=== PATIENT | male | born 1980 | race Caucasian/White ===

== ENCOUNTER 2018-09-30 14:24 | Inpatient (IN) ==
[2018-09-30 15:25] LABS: Basophils # (auto) 0.01 K/uL (0-0.2); Basophils % (auto) 0.1 %; Eosinophils # (auto) 0.03 K/uL (0-0.5); Eosinophils % (auto) 0.4 %; Hemoglobin 14.4 g/dL (14.0-18.0); Immature Granulocytes # (auto) 0.01 K/uL (0.00-0.02); Immature Granulocytes % (auto) 0.1 %; Lymphocytes # (auto) 1.51 K/uL (1.2-3.4); Lymphocytes % (auto) 20.3 %; Mean Corpuscular Hgb Conc 34.3 g/dL (32-36); Mean Corpuscular Volume 83.5 fL (80-100); Mean Platelet Volume 10.6 fL (7.4-10.4); Monocytes # (auto) 0.69 K/uL (0.11-0.59); Monocytes % (auto) 9.3 %; Neutrophils % (auto) 69.8 %; Platelet Count 205 K/uL (130-400); RDW Standard Deviation 42.6 fL (36.4-46.3); Red Blood Count 5.03 M/uL (4.7-6.1); White Blood Count 7.45 K/uL (4.8-10.8)
[2018-09-30] MEDS ORDERED: LORazepam 1 MG TAB SL STA (15:27)
[2018-09-30 15:43] LABS: Albumin Level 4.3 gm/dl (3.4-5.0); BUN Creatinine Ratio 16.8 (10-20); Calcium 8.9 mg/dl (8.5-10.1); Creatinine Clr Calc Pharmacy 159.4 ml/min; Est GFR (African American) 126.6; Est GFR (Non-African American) 109.2; Potassium 3.8 mmol/L (3.5-5.1)
[2018-09-30 15:46] LABS: Acetaminophen < 2 ug/ml (10-30); Salicylate < 1.7 mg/dl (2.8-20)
[2018-09-30 15:53] LABS: Albumin Globulin Ratio 1.2 (0.9-2); Bilirubin,Total 0.9 mg/dl (0.2-1); Globulin 3.6 gm/dl (2.5-4.0); Total Protein 7.9 gm/dl (6.4-8.2)
[2018-09-30 16:02] LABS: Appearance Urine Clear (Clear); Bilirubin Urine Negative (Negative); Blood Urine Negative (Negative); Color Urine Yellow; Glucose Urine UA Negative (Negative); Ketones Urine 1+ (Negative); Leukocyte Esterase Urine Negative (Negative); Nitrite Urine Negative (Negative); Protein Urine Negative (Negative); Specific Gravity Urine 1.019 (1.000-1.030); Urobilinogen Urine Negative (Negative)
[2018-09-30 16:31] LABS: Amphetamines+Metham, Urine Neg (Neg); Barbiturates, Urine Neg (Neg); Benzodiazepine, Urine Neg (Neg); Cocaine, Urine Neg (Neg); MDMA (Ecstacy), Urine Neg (Neg); Methadone, Urine Neg (Neg); Opiate, Urine Neg (Neg); Phencyclidine, Urine Neg (Neg)
--- NOTE | 2018-09-30 16:33 | Emergency Department Note ---
Entered by Leanne Odom acting as a scribe for Wenceslao West M.D. History of Present Illness General Chief complaint: Mental Health Evaluation Stated complaint: SUICIDAL THOUGHTS Source: patient Mode of arrival: ambulatory Limitations: no limitations History of Present Illness Onset (ago): day(s) 4 Location: head (psych) Severity: similar to prior episodes Pain Consistency: + other (worsening) Quality: + other (psych) Associated symptoms: + loss of appetite and + other (The patient complains of sleeping problems. The patient denies auditory hallucinations.) The patient is a 38 year old male with a history of hyperlipidemia, bipolar disorder, and alcohol abuse who presents to the ED with complaints of a worsening mental health issue that onset 4 days ago. Per case management, the patient was referred by his mental health provider from [facility]. He states that he has medication management and a therapist. The patient states that he thinks about hanging himself of shooting himself. He notes that he has had these thoughts in the past but they have not been emergent. The patient complains of sleeping problems and loss of appetite. The patient denies auditory h allucinations. He states that he is sober. He notes that he lives with his family. Home Medications Home Medications Medication Instructions Recorded Confirmed Type hydroxyzine pamoate [Vistaril] 50 - 100 mg PO HS PRN 09/30/18 09/30/18 History hydroxyzine pamoate [Vistaril] 50 - 100 mg PO Q6H PRN 09/30/18 09/30/18 History lamotrigine [Lamictal] 200 mg PO HS 09/30/18 09/30/18 History rosuvastatin [Crestor] 10 mg PO DAILY 09/30/18 09/30/18 History venlafaxine [Effexor XR] 75 mg PO DAILY 09/30/18 09/30/18 History ziprasidone HCl [Geodon] 60 mg PO BID 09/30/18 09/30/18 History Allergies Allergy/AdvReac Type Severity Reaction Status Date / Time Penicillins AdvReac Rash Verified 09/30/18 15:04 Past Med/Surg History Medical History HLD (hyperlipidemia) Alcohol abuse Bipolar disorder (Acute) Suicidal ideation (Acute) No pertinent family history Surgical History No pertinent past surgical history Family History Other No pertinent family history Social History Preferred Language: Lithuanian Communication Ability: Effective Visual Impairment: No Limitations Hearing Ability: Normal Current Living Situation: Family Feels Safe at Home: Yes Smoking Status: Never smoker Hx Alcohol Use: No (prior alcohol abuse) Review of Systems See HPI for pertinent positives & negatives. and A total of 10 systems reviewed and were otherwise negative Physical Exam Vital Signs Vital Signs - 24 hr 09/30/18 14:27 09/30/18 16:09 09/30/18 16:56 Temperature 36.9 C Temperature Source Oral Sepsis Recent Fever Within 48 Hours No Sepsis Action Taken by Nursing No Action Required Pulse Rate 103 H Pulse Rate [Right Finger] 91 H 93 H Pulse Rhythm [Right Finger] Regular Pulse Strength [Right Finger] Normal Respiratory Rate 20 18 18 Respiratory Effort / Characteristics Non-Labored Respiratory Depth Normal Respiratory Pattern Regular Blood Pressure 118/116 H Blood Pressure [Right Arm] 154/89 H 146/97 H Blood Pressure Mean 116 Blood Pressure Mean [Right Arm] 110 113 Blood Pressure Position Sitting Blood Pressure Position [Right Arm] Sitting Sitting Pulse Oximetry 95 98 96 Oxygen Delivery Method Room Air GENERAL: Awake, alert, well-appearing, in no distress HENT: Normocephalic, atraumatic. EYES: Normal conjunctiva. Sclera non-icteric. RESPIRATORY: Clear to auscultation. No wheezes. Normal respiratory effort. CARDIAC: Normal rate. Normal rhythm. Extremities warm and well perfused. GI: Soft, non-distended. No tenderness to palpation. No rebound or guarding. RECTAL: Deferred. MUSCULOSKELETAL: Atraumatic. Chest examination reveals no tenderness. NEURO: Normal sensorium. No sensory or motor deficits noted. No facial droop. PSYCH: Indorses SI, denies HI or hallucinations. Flat affect. SKIN: Warm and dry. No rash or jaundice noted. Course 1445: Past medical records reviewed. The patient was evaluated in room A7. A complete history and physical examination was performed. 172: The patient has been accepted to [address] [place] [address]. Administered Medications Discontinued Medications Lorazepam (Ativan) 2 mg SL NOW STA Stop: 09/30/18 15:28 Last Admin: 09/30/18 15:43 Dose: 2 mg Documented by: [id number] Medical Decision Making Differential Diagnosis Differential diagnoses Mood disorder, infection, hypoglycemia, electrolyte abnormalities, cardiac sources, intracerebral event, toxicologic, neurologic, as well as others etiologies were considered. Medical Records Attestation: I reviewed the patient's medical records. Home Medications Current Medication List: was personally reviewed by me Laboratory Data Attestation: I reviewed the patient's lab results. Result diagrams: 09/30/18 15:09 09/30/18 15:09 Lab Results 09/30/18 09/30/18 09/30/18 Range/Units 15:09 15:09 15:09 WBC 7.45 (4.8-10.8) K/uL RBC 5.03 (4.7-6.1) M/uL Hgb 14.4 (14.0-18.0) g/dL Hct 42.0 (42-52) % MCV 83.5 (80-100) fL MCH 28.6 (25-34) pg MCHC 34.3 (32-36) g/dL RDW Std Deviation 42.6 (36.4-46.3) fL RDW Coeff of Marely 14.0 (11.5-14.5) % Plt Count 205 (130-400) K/uL MPV 10.6 H (7.4-10.4) fL Immature Gran % (Auto) 0.1 % Neut % (Auto) 69.8 % Lymph % (Auto) 20.3 % Drew % (Auto) 9.3 % Eos % (Auto) 0.4 % Baso % (Auto) 0.1 % Immature Gran # (Auto) 0.01 (0.00-0.02) K/uL Neut # (Auto) 5.20 (1.4-6.5) K/uL Lymph # (Auto) 1.51 (1.2-3.4) K/uL Drew # (Auto) 0.69 H (0.11-0.59) K/uL Eos # (Auto) 0.03 (0-0.5) K/uL Baso # (Auto) 0.01 (0-0.2) K/uL Sodium 139 (136-145) mmol/L Potassium 3.8 (3.5-5.1) mmol/L Chloride 107 (98-107) mmol/L Carbon Dioxide 28 (21-32) mmol/L Anion Gap 4.0 (3-11) BUN 15 (7-18) mg/dl Creatinine 0.89 (0.6-1.4) mg/dl Est Cr Clr Drug Dosing 159.4 ml/min Est GFR ( Amer) 126.6 Est GFR (Non-Af Amer) 109.2 BUN/Creatinine Ratio 16.8 (10-20) Glucose 92 (70-99) mg/dl Calcium 8.9 (8.5-10.1) mg/dl Total Bilirubin 0.9 (0.2-1) mg/dl AST 23 (15-37) U/L ALT 46 (12-78) U/L Alkaline Phosphatase 106 (45-117) U/L Total Protein 7.9 (6.4-8.2) gm/dl Albumin 4.3 (3.4-5.0) gm/dl Globulin 3.6 (2.5-4.0) gm/dl Albumin/Globulin Ratio 1.2 (0.9-2) TSH 1.550 (0.300-4.500) uIu/ml Urine Color Urine Appearance (Clear) Urine pH (4.5-7.5) Ur Specific Billings (1.000-1.030) Urine Protein (Negative) Urine Glucose (UA) (Negative) Urine Ketones (Negative) Urine Blood (Negative) Urine Nitrite (Negative) Urine Bilirubin (Negative) Urine Urobilinogen (Negative) Ur Leukocyte Esterase (Negative) Salicylates < 1.7 L (2.8-20) mg/dl Urine Opiates Screen (Neg) Ur Methadone, Qual (Neg) Acetaminophen < 2 L (10-30) ug/ml Urine Barbiturates (Neg) Ur Phencyclidine (PCP) (Neg) U Amphetamin/Meth Scrn (Neg) MDMA (Ecstasy) Screen (Neg) U Benzodiazepines Scrn (Neg) Ur Cocaine Metabolite (Neg) U Marijuana (THC) Screen (Neg) Ethyl Alcohol mg/dL (0-3) mg/dl 09/30/18 09/30/18 09/30/18 Range/Units 15:09 15:45 15:45 WBC (4.8-10.8) K/uL RBC (4.7-6.1) M/uL Hgb (14.0-18.0) g/dL Hct (42-52) % MCV (80-100) fL MCH (25-34) pg MCHC (32-36) g/dL RDW Std Deviation (36.4-46.3) fL RDW Coeff of Marely (11.5-14.5) % Plt Count (130-400) K/uL MPV (7.4-10.4) fL Immature Gran % (Auto) % Neut % (Auto) % Lymph % (Auto) % Drew % (Auto) % Eos % (Auto) % Baso % (Auto) % Immature Gran # (Auto) (0.00-0.02) K/uL Neut # (Auto) (1.4-6.5) K/uL Lymph # (Auto) (1.2-3.4) K/uL Drew # (Auto) (0.11-0.59) K/uL Eos # (Auto) (0-0.5) K/uL Baso # (Auto) (0-0.2) K/uL Sodium (136-145) mmol/L Potassium (3.5-5.1) mmol/L Chloride (98-107) mmol/L Carbon Dioxide (21-32) mmol/L Anion Gap (3-11) BUN (7-18) mg/dl Creatinine (0.6-1.4) mg/dl Est Cr Clr Drug Dosing ml/min Est GFR ( Amer) Est GFR (Non-Af Amer) BUN/Creatinine Ratio (10-20) Glucose (70-99) mg/dl Calcium (8.5-10.1) mg/dl Total Bilirubin (0.2-1) mg/dl AST (15-37) U/L ALT (12-78) U/L Alkaline Phosphatase (45-117) U/L Total Protein (6.4-8.2) gm/dl Albumin (3.4-5.0) gm/dl Globulin (2.5-4.0) gm/dl Albumin/Globulin Ratio (0.9-2) TSH (0.300-4.500) uIu/ml Urine Color Yellow Urine Appearance Clear (Clear) Urine pH 6.0 (4.5-7.5) Ur Specific Billings 1.019 (1.000-1.030) Urine Protein Negative (Negative) Urine Glucose (UA) Negative (Negative) Urine Ketones 1+ H (Negative) Urine Blood Negative (Negative) Urine Nitrite Negative (Negative) Urine Bilirubin Negative (Negative) Urine Urobilinogen Negative (Negative) Ur Leukocyte Esterase Negative (Negative) Salicylates (2.8-20) mg/dl Urine Opiates Screen Neg (Neg) Ur Methadone, Qual Neg (Neg) Acetaminophen (10-30) ug/ml Urine Barbiturates Neg (Neg) Ur Phencyclidine (PCP) Neg (Neg) U Amphetamin/Meth Scrn Neg (Neg) MDMA (Ecstasy) Screen Neg (Neg) U Benzodiazepines Scrn Neg (Neg) Ur Cocaine Metabolite Neg (Neg) U Marijuana (THC) Screen Neg (Neg) Ethyl Alcohol mg/dL < 3.0 (0-3) mg/dl Blood Pressure Blood Pressure Findings: Elevated blood pressure Blood Pressure Disposition: elevated BP felt to be situational MDM Narrative Patient is a 38-year-old gentleman history of bipolar currently on medication presenting today with 4 days of worsening suicidal ideation. Thinks that he wants to shoot himself or hang himself. Denies attempts. Denies other hallucinations or thoughts of harming others. Denies inpatient psych history. Has been working outpatient provider and given worsening they referred him here today. States compliance with home medication. History of alcohol abuse but none recently & denies other drug use. Medical clearance completed without acute findings. Given his history of bipolar disease along with the worsening suicidal thoughts with plan believe inpatient treatment would be beneficial. Patient wishes for voluntary inpatient treatment. [facility] assisted with evaluation and referrals. Patient has some worsening anxiety and was scoring very high on the suicide assessment. Given some sublingual Ativan to help with symptoms of anxiety. Patient was evaluated by the [facility] personnel and will be admitted there for further care and treatment. Impression & Plan Suicidal ideation, Bipolar disorder Discharge Plan Visit Data Chief Complaint: Mental Health Evaluation Stated Complaint: SUICIDAL THOUGHTS ED Provider: Wenceslao West Discharge Problem: Suicidal ideation, Bipolar disorder Patient Disposition: Transfer Behavioral Health Fac Condition: Fair Forms Stand Alone Forms: My [facility] Prescriptions Prescriptions: No Action venlafaxine [Effexor XR] 75 mg Capsule,Extended Release 24hr 75 mg PO DAILY RF: 0 rosuvastatin [Crestor] 10 mg Tablet 10 mg PO DAILY RF: 0 lamotrigine [Lamictal] 200 mg Tablet 200 mg PO HS RF: 0 hydroxyzine pamoate [Vistaril] 50 mg Capsule 50 - 100 mg PO HS PRN (Reason: Sleep) RF: 0 hydroxyzine pamoate [Vistaril] 50 mg Capsule 50 - 100 mg PO Q6H PRN (Reason: Anxiety) RF: 0 ziprasidone HCl [Geodon] 60 mg Capsule 60 mg PO BID RF: 0 Referrals Referrals: PCP,NO [Primary Care Provider] - Discharge Problem: Bipolar disorder Qualifiers: Active/Remission status: currently active Current bipolar episode type: depressed Current episode severity: unspecified Qualified Code(s): F31.30 - Bipolar disorder, current episode depressed, mild or moderate severity, unspecified The scribe's documentation has been prepared under my direction and personally reviewed by me in its entirety. I confirm that the note above accurately reflects all work, treatment, procedures, and medical decision making performed by me.
[2018-09-30] MEDS ORDERED: BISMUTH SUBSALICYLATE PER ML OMNICELL CHARGE PO PRN (17:06)
[2018-09-30] MEDS ORDERED: ALUMINUM/MAGNESIUM SUSP 30 ML UDC PO PRN (17:06)
[2018-09-30] MEDS ORDERED: MAGNESIUM HYDROXIDE SUSP 30 ML UDC PO PRN (17:06)
[2018-09-30] MEDS ORDERED: SODIUM CHLORIDE 0.65% NA SOLN 45 ML (OCEAN) PRN (17:06)
[2018-09-30] MEDS: ZIPRASIDONE HCL 20 MG CAP PO SCH (19:58)
[2018-09-30] MEDS ORDERED: lamoTRIgine 100 MG TAB PO SCH (21:00)
[2018-09-30] MEDS: lamoTRIgine 100 MG TAB PO SCH (21:05)
[2018-10-01] MEDS: ZIPRASIDONE HCL 20 MG CAP PO SCH (09:18)
[2018-10-01] MEDS: ROSUVASTATIN CALCIUM 10 MG TAB PO SCH (09:18)
[2018-10-01] MEDS: VENLAFAXINE HCL XR 75 MG CAPXR PO SCH (09:18)
[2018-10-01] MEDS: QUETIAPINE FUMARATE 25 MG TABLET PO PRN ×2 (11:56→17:31)
--- NOTE | 2018-10-01 15:21 | History & Physical ---
Date of Service October 01, 2018 Impression / Recommendations Impression 38-year-old male admitted voluntarily for inpatient psychiatric treatment due to increased restlessness/agitation and suicidal ideation with plan to end his life by shooting himself or hanging. Patient was brought to the ED by his father after reporting his worsening symptoms to his outpatient psychiatric provider. Patient reports primary concerns at this time are prominent thoughts of suicide, and racing thoughts causing restlessness and agitation. Patient does not describe himself as depressed, rather he is in a more elevated state with regards to a diagnosed bipolar presentation. Reviewed previous medication history with the patient, who reports a desire to return to quetiapine as he had found it previously helpful to manage his racing scattered thoughts. Patient did receive a 60 mg dose of ziprasidone this morning, we will plan to discontinue ziprasidone in order 100 mg of quetiapine for this evening. We will plan to have 50 mg of quetiapine every morning and 100 mg at bedtime available to the patient. Patient benefited from a as needed dose of quetiapine, and therefore will have 25 mg as needed doses available. Patient was encouraged to attempt sleep with current bedtime medications; however, we will have as needed trazodone 50 mg available if necessary for insomnia here on the unit. Patient is agreeable to continuing lamotrigine at current dose of 200 mg at bedtime. He is also agreeable to continuing venlafaxine at 75 mg every morning. Did discuss with patient potential to further titrate venlafaxine, though shared concern for increased restlessness or agitation if this is indeed a hypomanic/manic presentation for him. Patient was offered a trial of metformin in combination with quetiapine, due to current elevated BMI and previously reported weight gain with the medication. Risks and benefits were discussed; however, patient declines trial at this time stating he will consider if the medication on an outpatient basis. Patient will be encouraged to participate in group and recreational programming while he is admitted to the unit. We will encourage him to consider including outpatient supports in a family meeting to discuss discharge and safety planning when appropriate. At this time, patient continues to endorse suicidal ideation with inability to contract for safety outside of the inpatient setting. He is requesting medication adjustments which may be completed more effectively on the inpatient unit. At this time he is at high risk of harm to himself if discharged prematurely, therefore inpatient psychiatric treatment is medically necessary. Dr. Bon Jay was directly involved in review and discussion of the patient's case and participated in medical decision making regarding treatment recommendations. (1) Suicidal ideation: 10/01 - Admitted to a locked inpatient behavioral health unit, on q15 minute safety checks - Encourage medication initiation/adjustments as indicated - Encourage participation in group and recreational therapies - Gather collateral information from outpatient providers - Suggest family meeting to involve outpatient supports in safety planning - Arrange appropriate aftercare (2) Mood disorder: 10/01 - Current diagnosis of bipolar I disorder, though patient's perception of symptoms does not appear to be consistent - Attempt to clarify criteria with psychiatric prescriber - Pt requesting retrial of quetiapine. Will discontinue ziprasidone (received 60mg total today), initiate 100mg of quetiapine this evening - Schedule 50mg quetiapine qAM and 100mg qHS - Could consider ongoing titration of venlafaxine as tolerated - with close observation for activation/increased restlessness - Continue lamotrigine 200mg qHS - Will add trazodone 50mg prn for sleep - pt encouraged to trial quetiapine first (3) Generalized anxiety disorder: 10/01 - Continue venlafaxine 75mg daily - prn quetiapine 25mg available for acute anxiety, as patient feels hydroxyzine is ineffective (4) HLD (hyperlipidemia): 10/01 - Outpatient fasting blood work reviewed (07/06/2018) - Total cholesterol elevated at 255; triglycerides elevated at 200; LDL elevated at 172. - Fasting glucose was WNL at 86. - Will repeat fasting blood work to have updated 3 month values; especially with the consideration for additional medication changes Hyperlipidemia type: unspecified Qualified Code(s): E78.5 - Hyperlipidemia, unspecified (5) Obesity: 10/01 - BMI - 37.3; was offered trial of metformin as part of medication regimen to offset weight gain likely with re-trial of quetiapine - Pt deferred offer at this time, stating he will consider when he returns to outpatient setting Obesity type: unspecified obesity type Obesity classification: adult class 2 (BMI 35 - 39.9) Body mass index: BMI 37.0-37.9 Inventory Assets Strengths: willingness for treatment, support of family, established outpatient providers Needs: resolution of SI, effective coping strategies Risk Factors Assessment Male: Yes : Yes Do You Have Access To A Gun?: Yes (states was secured by father; will need to confirm) Health Problems: Yes Mental Health Diagnoses: Yes Substance Use Disorders: No (Hx of alcohol abuse, last drink over 1 year ago) Previous Attempt: Yes (interrupted attempt, was set-up to hang himself in his garage) Previous Attempt; Didn't Tell Anyone: Yes Family History of Suicide: No Previous Psychiatric Hospitalization: No Hopelessness: Yes Smoker: No Protective Factors Assessment Congregational Beliefs: Yes : No Responsible for Young Children: No 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 Pt has a reported diagnosis of bipolar I disorder and generalized anxiety disorder, currently established with outpatient psychiatric providers. Pt was admitted on 09/30/18 17:06 on a 201 voluntary commitment for increased agitation/restlessness and suicidal ideation with plan to either shoot or hang himself. Information is gathered from ED notes, outpatient psychiatric documentation, and the patient himself - the combination of which is considered to be reliable. Chief Complaint "I've just been having suicidal thoughts here recently. I thought I was gonna act on them, it was really overwhelming." History of Present Illness Lázaro Guido is a 38-year-old male admitted voluntarily for inpatient psychiatric treatment upon referral from his outpatient psychiatric prescriber. Patient was brought to the ED by his father after he had shared thoughts of suicidal ideation and reported difficulty coping with racing thoughts and agitation. Patient had reported suicidal ideation for the past week with a plan to either shoot himself or hang himself. Patient admits to this provider that he has been sleeping with his gun next to him and had acquired a rope which she has been keeping in his car. Patient states "It is really overwhelming. It used to be that it would take a lot of work for me to consider suicide, now it seems like it is taking a lot of work to prevent it." Patient does admit that 10 years ago he had been in the process of attempting to end his life by hanging, but states "I do not know, I must have gotten scared, I just got off the chair and walked away." Patient reports a current diagnosis of bipolar disorder and is established with outpatient therapy and a psychiatric prescriber. Patient states that he has been receiving psychiatric treatment since the age of 21, when his suicidal thoughts began. Patient has been started on antidepressant medication, which she states was effective to improve his mood. Patient admits to a struggle with alcohol abuse, beginning in 2009. He states this was "the beginning of my divorce". At the time the patient was also in nursing school, and was experiencing increased stress from this program. Patient did receive treatment through an intensive outpatient program and his attendance in AA meetings and counseling. He reports sporadic psychiatric treatment since that time. Patient states he has been established in routine care for the last year, as he has been noting periods of increased restlessness and agitation. Patient reports a period of time in which he did not require sleep for 3 days, was excessively irritable, and had relapsed on his alcohol use after 8 years of sobriety. The patient states that his irritability and agitation lasted for about 4-5 days. Patient states that he is experienced 2 of these episodes in the springtime for the past 2 years. He also believes that stress tends to trigger these events as well. Patient admits to difficulty sleeping recently; however, has been feeling fatigued during the day and would not describe himself as overly productive. Patient reports other symptoms of difficulty falling asleep, difficulty staying asleep, reduced appetite with possible 4 pound weight loss, decreased energy, difficulty concentrating, hopelessness, and persistent suicidal thoughts for the past week. Patient does report a history of anxiety, which tends to be h eightened by financial concerns. Patient states he has not experienced panic attacks before the last few days, stating he has recently noticed tightness in his stomach and chest, difficulty breathing, feeling a need to move around, diaphoresis, and racing/scattered thoughts. Patient states the symptoms have lasted a maximum of 10 minutes in the time that they have occurred. Patient has experienced recent medication changes to assist with his increased agitation and restlessness; however, does not feel that they have been effective in managing his scattered thoughts and mood. Pt denies HI, SIB, A/V hallucinations, paranoia, OCD, PTSD, eating disorder, and other specific psychiatric symptoms. His personal report of his manic/hypomanic symptoms are not clearly consistent with a bipolar presentation. Past Psychiatric History Previous Psych History: Patient initially began psychiatric treatment in his 20s for reports of suicidal ideation and depression. He was initially treated by Dr. Zurita at [facility]. Patient states the initiation of antidepressant medications was beneficial in improving mood, Current Psychiatric Diagnosis: Bipolar Disorder I; Generalized anxiety disorder Outpatient Services: Psychiatric prescriber - MARANDA Redd - [facility] Therapist - Indira Smith Previous Psych Admissions: Denies Do You Have Access To A Gun?: Yes (states was secured by father; will need to confirm) History of Previous Suicide Attempt: No Describe Attempts in the Past: No previous attempts Past Medication Trials: Per patient and outpatient documentation: 1. Trazodone 2. Seroquel 3. Effexor 4. Pristiq 5. Lamictal 6. Geodon 7. Hydroxyzine 8. Latuda 9. Abilify (per patient reports) Past Head Trauma/Neuro History History of Concussion/Seizure: Yes LOC with head trauma at age 11; several concussions from college boxing Allergies Allergy/AdvReac Type Severity Reaction Status Date / Time Penicillins AdvReac Rash Verified 09/30/18 15:04 Home Medications Home Medications Medication Instructions Recorded Confirmed Type hydroxyzine HCl See Rx Instructions .ROUTE .COMPLEX 09/30/18 09/30/18 History lamotrigine [Lamictal] 200 mg PO HS 09/30/18 09/30/18 History rosuvastatin [Crestor] 10 mg PO DAILY 09/30/18 09/30/18 History venlafaxine See Rx Instructions .ROUTE .COMPLEX 09/30/18 09/30/18 History ziprasidone HCl [Geodon] 60 mg PO BID 09/30/18 09/30/18 History Family History Family History of: Depression (both maternal and paternal sides) Alcohol History Hx of Alcohol Use Over the Past 12 Months: No (sober for 8 years with the exception of 5 beers about a year ago) AUDIT Total Score: 0 Pt reports previous history of significant alcohol abuse beginning in 2009. Patient states he had achieved 8 years of sobriety, then relapsed on his alcohol use. Patient's last alcoholic beverage was in July 2017. Patient admits to previous treatment in an intensive outpatient program; however, denies previous admissions for inpatient drug or alcohol rehabilitation. Smoking Use Have You Smoked or Used Tobacco Products in the Last 30 Days: No Smoking Status: Never smoker Substance History Hx of Prescription Med Misuse Over the Past 12 Months: No Hx of Over the Counter Med Misuse Over the Past 12 Months: No Hx of Inhalent Misuse Over the Past 12 Months: No Hx of Organic Substance Use Over the Past 12 Months: No Hx of Illegal Substances/Street Drug Use Over Past 12 Months: No Problems as a Result of Past Substance Use: None Identified Personal History Living Arrangements: Home (With parents) Highest Grade Completed: College (Completed education for a nursing degree, 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[employer]) Marital Status: ( following 6 years of marriage) Number Of Children: None Beliefs That Will Affect Care: None Current Legal Problems: No Hx Legal Problems: No Hx Traumatic Life Events: No Patient History Medical History HLD (hyperlipidemia) Alcohol abuse Bipolar disorder (Acute) Suicidal ideation (Acute) No pertinent family history Surgical History No pertinent past surgical history Family History Other No pertinent family history Social History Preferred Language: Greek Communication Ability: Effective Visual Impairment: No Limitations Hearing Ability: Normal It Senior Analyst Required: No Beliefs That Will Affect Care: None Current Living Situation: Family Feels Safe at Home: Yes Smoking Status: Never smoker Hx Alcohol Use: No (prior alcohol abuse) Review of Systems Review of Systems: Constitutional: denied Cardiovascular: denied Respiratory: denied Gastrointestinal: denied Neurological: reports decreased concentration Psychiatric: denies symptoms other than stated above Total of at least 10 systems reviewed, pertinent positives as above and in HPI. Physical Exam Psychiatric: Orientation: alert, oriented x 3 and cooperative Apperance: appropriately dressed and appropriately groomed Obese-appearing male with neatly trimmed facial hair. Wearing t-shirt and scrub pants. Appearing anxious, but in no acute distress. Level of hygiene and hydration appear adequate. Eye Contact: good eye contact Motor Behavior: steady gait and station and no abnormal motor movements Speech: normal rate/rhythm/volume of speech (monotone) Affect: + flat affect Mood: + anxious mood; no depressed mood ("not really low, more restless") Thought Process: goal directed thought process, linear/logical thought process and clear/coherent thought process Thought Content: reality based without delusions Suicidal Thoughts: denies suicidal intent (had been sleeping with his gun and driving around with a rope in his car); + reports suicidal thoughts and + reports suicidal plan (reports plan to shoot or hang himself) Homicidal Thoughts: denies homicidal thoughts Hallucinations: no auditory hallucinations and no visual hallucinations Cognition: recent memory grossly intact, remote memory grossly intact, attention grossly intact and language grossly intact Estimated Intelligence: consistent with education level Insight: + impaired insight Judgement: + impaired judgement Vital Signs (Past 24 Hours): Last Vital Signs Temp 36.6 C 10/01/18 06:20 Pulse 101 H 10/01/18 06:22 Resp 18 10/01/18 06:20 BP 137/83 10/01/18 06:22 Pulse Ox 96 09/30/18 16:56 Exam Statement: A physical exam was performed in the ER prior to admission to the unit by Dr. Wenceslao West MD. I accept that physical as correct/medical clearance for the inpatient physical exam. Results & Data Laboratory Results Laboratory Results - last 24 hr 09/30/18 09/30/18 09/30/18 15:09 15:09 15:09 WBC 7.45 RBC 5.03 Hgb 14.4 Hct 42.0 MCV 83.5 MCH 28.6 MCHC 34.3 RDW Std Deviation 42.6 RDW Coeff of Marely 14.0 Plt Count 205 MPV 10.6 H Immature Gran % (Auto) 0.1 Neut % (Auto) 69.8 Lymph % (Auto) 20.3 [place] % (Auto) 9.3 Eos % (Auto) 0.4 Baso % (Auto) 0.1 Immature Gran # (Auto) 0.01 Neut # (Auto) 5.20 Lymph # (Auto) 1.51 [place] # (Auto) 0.69 H Eos # (Auto) 0.03 Baso # (Auto) 0.01 Sodium 139 Potassium 3.8 Chloride 107 Carbon Dioxide 28 Anion Gap 4.0 BUN 15 Creatinine 0.89 Est Cr Clr Drug Dosing 159.4 Est GFR ( Amer) 126.6 Est GFR (Non-Af Amer) 109.2 BUN/Creatinine Ratio 16.8 Glucose 92 Calcium 8.9 Total Bilirubin 0.9 AST 23 ALT 46 Alkaline Phosphatase 106 Total Protein 7.9 Albumin 4.3 Globulin 3.6 Albumin/Globulin Ratio 1.2 TSH 1.550 Urine Color Urine Appearance Urine pH Ur Specific [place] Urine Protein Urine Glucose (UA) Urine Ketones Urine Blood Urine Nitrite Urine Bilirubin Urine Urobilinogen Ur Leukocyte Esterase Salicylates < 1.7 L Urine Opiates Screen Ur Methadone, Qual Acetaminophen < 2 L Urine Barbiturates Ur Phencyclidine (PCP) U Amphetamin/Meth Scrn MDMA (Ecstasy) Screen U Benzodiazepines Scrn Ur Cocaine Metabolite U Marijuana (THC) Screen Ethyl Alcohol mg/dL 09/30/18 09/30/18 09/30/18 15:09 15:45 15:45 WBC RBC Hgb Hct MCV MCH MCHC RDW Std Deviation RDW Coeff of Marely Plt Count MPV Immature Gran % (Auto) Neut % (Auto) Lymph % (Auto) [place] % (Auto) Eos % (Auto) Baso % (Auto) Immature Gran # (Auto) Neut # (Auto) Lymph # (Auto) [place] # (Auto) Eos # (Auto) Baso # (Auto) Sodium Potassium Chloride Carbon Dioxide Anion Gap BUN Creatinine Est Cr Clr Drug Dosing Est GFR ( Amer) Est GFR (Non-Af Amer) BUN/Creatinine Ratio Glucose Calcium Total Bilirubin AST ALT Alkaline Phosphatase Total Protein Albumin Globulin Albumin/Globulin Ratio TSH Urine Color Yellow Urine Appearance Clear Urine pH 6.0 Ur Specific [place] 1.019 Urine Protein Negative Urine Glucose (UA) Negative Urine Ketones 1+ H Urine Blood Negative Urine Nitrite Negative Urine Bilirubin Negative Urine Urobilinogen Negative Ur Leukocyte Esterase Negative Salicylates Urine Opiates Screen Neg Ur Methadone, Qual Neg Acetaminophen Urine Barbiturates Neg Ur Phencyclidine (PCP) Neg U Amphetamin/Meth Scrn Neg MDMA (Ecstasy) Screen Neg U Benzodiazepines Scrn Neg Ur Cocaine Metabolite Neg U Marijuana (THC) Screen Neg Ethyl Alcohol mg/dL < 3.0 Current Inpatient Medications Current Inpatient Medications: Current Inpatient Medications Acetaminophen (Tylenol) 650 mg PO Q4H PRN PRN Reason: Headache or Minor Fever Stop: 10/30/18 17:05 Al Hydrox/Mg Hydrox/Simethicone (Maalox) 30 ml PO Q4H PRN PRN Reason: GI Upset Stop: 10/30/18 17:05 Bismuth Subsalicylate (Kaopectate) 15 ml PO PRN PRN PRN Reason: Loose Stool Stop: 10/30/18 17:05 Hydroxyzine HCl (Vistaril) 25 mg PO Q4H PRN PRN Reason: Anxiety Stop: 10/30/18 17:05 Hydroxyzine HCl (Vistaril) 50 mg PO HSZ PRN PRN Reason: Insomnia Stop: 10/30/18 17:05 Last Admin: 09/30/18 21:55 Dose: 50 mg Documented by: Lamotrigine (Lamictal) 200 mg PO HS JAMIE Stop: 10/30/18 21:59 Last Admin: 09/30/18 21:05 Dose: 200 mg Documented by: Magnesium Hydroxide (Milk Of Magnesia) 30 ml PO DAILY PRN PRN Reason: Heartburn Stop: 10/30/18 17:05 Rosuvastatin Calcium (Crestor) 10 mg PO QAM [facility] Stop: 10/31/18 08:59 Last Admin: 10/01/18 09:18 Dose: 10 mg Documented by: Sodium Chloride (Rich Nasal) 1 - 2 sprays NA PRN PRN PRN Reason: Nasal Dryness/Congestion Stop: 10/30/18 17:05 Venlafaxine HCl (Effexor Extended Release) 75 mg PO QAM [facility] Stop: 10/31/18 08:59 Last Admin: 10/01/18 09:18 Dose: 75 mg Documented by: Ziprasidone (Geodon) 60 mg PO BIDM [facility] Stop: 10/30/18 17:59 Last Admin: 10/01/18 09:18 Dose: 60 mg Documented by: CPT Code CPT Code Initial Hospital Care: [id number]
[2018-10-01] MEDS: lamoTRIgine 100 MG TAB PO SCH (21:49)
[2018-10-01] MEDS: TRAZODONE HCL 50 MG TAB PO PRN (21:51)
[2018-10-01] MEDS ORDERED: QUETIAPINE FUMARATE 100 MG TABLET PO SCH (22:00)
[2018-10-02 07:12] LABS: Glucose Fasting 93 mg/dl (70-99)
[2018-10-02 07:19] LABS: Chol HDL Ratio 3; Cholesterol 129 mg/dl (0-200); HDL Cholesterol 42 mg/dl; LDL Cholesterol Calculated 67 mg/dl; Triglycerides 102 mg/dl (0-150); VLDL Cholesterol 20 mg/dl
[2018-10-02] MEDS: VENLAFAXINE HCL XR 75 MG CAPXR PO SCH (08:17)
[2018-10-02] MEDS: ROSUVASTATIN CALCIUM 10 MG TAB PO SCH (08:17)
[2018-10-02] MEDS: QUETIAPINE FUMARATE 25 MG TABLET PO SCH (08:17)
[2018-10-02] MEDS: QUETIAPINE FUMARATE 25 MG TABLET PO PRN ×3 (11:17→19:31)
--- NOTE | 2018-10-02 12:00 | Psychiatric Progress Note ---
Date of Service October 02, 2018 Impression / Recommendations Impression 38-year-old male admitted voluntarily for inpatient psychiatric treatment due to increased restlessness/agitation and suicidal ideation with plan to end his life by shooting himself or hanging. Patient was brought to the ED by his father after reporting his worsening symptoms to his outpatient psychiatric provider. Patient reports primary concerns at this time are prominent thoughts of suicide, and racing thoughts causing restlessness and agitation. Patient does not describe himself as depressed, rather he is in a more elevated state with regards to a diagnosed bipolar presentation. At admission the provider reviewed previous medication history with the patient, who reported a desire to return to quetiapine as he had found it previously helpful to manage his racing scattered thoughts. Started at admission on 50 mg of quetiapine every morning and 100 mg at bedtime available to the patient. Patient benefited from a as needed dose of quetiapine, and therefore will have 25 mg as needed doses available. Patient was encouraged to attempt sleep with current bedtime medications; however, we will have as needed trazodone 50 mg available if necessary for insomnia here on the unit. Patient is agreed to continuing lamotrigine at current dose of 200 mg at bedtime. He agreed to continuing venlafaxine at 75 mg every morning. He declined a trial of metformin in combination with quetiapine, due to current elevated BMI and previously reported weight gain with the medication. Patient contniues to be encouraged to participate in group and recreational programming while he is admitted to the unit. We will continue to encourage him to consider including outpatient supports in a family meeting scheduled for 10/02/18 to discuss discharge and safety planning when appropriate. At this time, patient continues to endorse suicidal ideation with inability to contract for safety outside of the inpatient setting. He is requesting medication adjustments which may be completed more effectively on the inpatient unit. At this time he is at high risk of harm to himself if discharged prematurely, therefore inpatient psychiatric treatment is medically necessary. (1) Suicidal ideation: 10/01 and 10/02 - Admitted to a locked inpatient behavioral health unit, on q15 minute safety checks - Encourage medication initiation/adjustments as indicated - Encourage participation in group and recreational therapies - Gather collateral information from outpatient providers - Suggest family meeting to involve outpatient supports in safety planning - Arrange appropriate aftercare (2) Mood disorder: 10/01 and 10/02 - Current diagnosis of bipolar I disorder, though patient's perception of symptoms does not appear to be consistent - Attempt to clarify criteria with psychiatric prescriber - Pt requesting retrial of quetiapine. Will discontinue ziprasidone (received 60mg total today), initiate 100mg of quetiapine this evening - Schedule 50mg quetiapine qAM and 100mg qHS - Could consider ongoing titration of venlafaxine as tolerated - with close observation for activation/increased restlessness - Continue lamotrigine 200mg qHS - Will add trazodone 50mg prn for sleep - pt encouraged to trial quetiapine first (3) Generalized anxiety disorder: 10/01 and 10/02 - Continue venlafaxine 75mg daily - prn quetiapine 25mg available for acute anxiety, as patient feels hydroxyzine is ineffective (4) HLD (hyperlipidemia): 10/01 - Outpatient fasting blood work reviewed (07/06/2018) - Total cholesterol elevated at 255; triglycerides elevated at 200; LDL elevated at 172. - Fasting glucose was WNL at 86. - Will repeat fasting blood work to have updated 3 month values; especially with the consideration for additional medication changes 10/02 - metabolic labs all WNL today (5) Obesity: 10/01 and 10/02 - BMI - 37.3; was offered trial of metformin as part of medication regimen to offset weight gain likely with re-trial of quetiapine - Pt deferred offer at this time, stating he will consider when he returns to outpatient setting Inventory Assets Strengths: willingness for treatment, support of family, established outpatient providers Needs: resolution of SI, effective coping strategies Risk Factors Assessment Male: Yes : Yes Do You Have Access To A Gun?: Yes (states was secured by father; will need to confirm) Health Problems: Yes Mental Health Diagnoses: Yes Substance Use Disorders: No (Hx of alcohol abuse, last drink over 1 year ago) Previous Attempt: Yes (interrupted attempt, was set-up to hang himself in his garage) Previous Attempt; Didn't Tell Anyone: Yes Family History of Suicide: No Previous Psychiatric Hospitalization: No Hopelessness: Yes Smoker: No Protective Factors Assessment Anglican Beliefs: Yes : No Responsible for Young Children: No 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 Review of Systems Sleep Information Total Hours of Sleep: 6.25 Sleep Comments: received scheduled hs seroquel and prn doses of desyrel and vist aril to get to sleep Meal Information Percent Meal Consumed - Breakfast: 0 Percent Meal Consumed - Dinner: 100 Subjective Subjective Patient was seen & assessed and interval progress reviewed with Treatment Team The staff notes the patient continues to appear anxious and depressed but is taking his medications and engaged in programming on the unit. He was anxious yesterday and did well s/p 25mg seroquel x1 [facility]. He is worried about missing work, he feels less anxious than yesterday "down from a 9 to a 7 today, and then after this mornings medications down to a 6" He states he is sleeping well and not "too sleepy" on seroquel 50mg/Am and 100mg/hs with prn 25mg. He has modest dry mouth today but o/w denies SE. He reports he was thinking about suicidal all the time prior to admission and now it is down from a 10/10 to a 4/10 but still thoughts on his mind but denies active intention or plan on the unit. He is active in dsicussing his medications and doses and asking provider's perspective on his venlafaxine dose as mentioned by yesterday's provider, and askinga bout lithium which he had discussed with his outpatient provider. He shared that he has great confidence in seroquel but he was tired. He had not been on it with lamictal in the past. Encouraged him to consider keeping medications at these doses for today and evaluating for progress and se tomorrow, with consideration for seroquel to 200mg/hs, and lamictal 200mg ongoing, and then redecide about effexor. Physical Exam Psychiatric Orientation: alert, oriented x 3 and cooperative Apperance: appropriately dressed and appropriately groomed Eye Contact: good eye contact Motor Behavior: steady gait and station and no abnormal motor movements Speech: normal rate/rhythm/volume of speech (monotone but spontaneous) Affect: + flat affect Mood: + anxious mood; no depressed mood ("down, but anxiety is more my concern right now") Thought Process: goal directed thought process, linear/logical thought process and clear/coherent thought process Thought Content: reality based without delusions Suicidal Thoughts: denies suicidal intent (had been sleeping with his gun and driving around with a rope in his car); + reports suicidal thoughts (since admission has passive SI, denies intention or plan on the unit) and + reports suicidal plan (reports plan to shoot or hang himself prior to inpatient) Homicidal Thoughts: denies homicidal thoughts Hallucinations: no auditory hallucinations and no visual hallucinations Cognition: recent memory grossly intact, remote memory grossly intact, attention grossly intact and language grossly intact Estimated Intelligence: consistent with education level Insight: + impaired insight Judgement: + impaired judgement Vital Signs (Past 24 Hours) Last Vital Signs Temp 36.6 C 10/02/18 06:36 Pulse 105 H 10/02/18 06:37 Resp 16 10/02/18 06:36 BP 116/78 10/02/18 06:37 Pulse Ox 96 09/30/18 16:56 Results & Data Laboratory Results Laboratory Results - last 24 hr 10/02/18 06:27 Fasting Glucose 93 Triglycerides 102 Cholesterol 129 LDL Cholesterol, Calc 67 VLDL Cholesterol, Calc 20 HDL Cholesterol 42 Cholesterol/HDL Ratio 3 Current Inpatient Medications Current Inpatient Medications: Current Inpatient Medications Acetaminophen (Tylenol) 650 mg PO Q4H PRN PRN Reason: Headache or Minor Fever Stop: 10/30/18 17:05 Al Hydrox/Mg Hydrox/Simethicone (Maalox) 30 ml PO Q4H PRN PRN Reason: GI Upset Stop: 10/30/18 17:05 Bismuth Subsalicylate (Kaopectate) 15 ml PO PRN PRN PRN Reason: Loose Stool Stop: 10/30/18 17:05 Hydroxyzine HCl (Vistaril) 25 mg PO Q4H PRN PRN Reason: Anxiety Stop: 10/30/18 17:05 Hydroxyzine HCl (Vistaril) 50 mg PO HSZ PRN PRN Reason: Insomnia Stop: 10/30/18 17:05 Last Admin: 10/01/18 23:07 Dose: 50 mg Documented by: Lamotrigine (Lamictal) 200 mg PO HS JAMIE Stop: 10/30/18 21:59 Last Admin: 10/01/18 21:49 Dose: 200 mg Documented by: Magnesium Hydroxide (Milk Of Magnesia) 30 ml PO DAILY PRN PRN Reason: Heartburn Stop: 10/30/18 17:05 Quetiapine Fumarate (Seroquel) 25 mg PO Q4H PRN PRN Reason: agitation/anxiety Stop: 10/31/18 11:29 Last Admin: 10/02/18 11:17 Dose: 25 mg Documented by: Quetiapine Fumarate (Seroquel) 100 mg PO HS JAMIE Stop: 10/31/18 21:59 Last Admin: 10/01/18 21:50 Dose: 100 mg Documented by: Quetiapine Fumarate (Seroquel) 50 mg PO QAM [facility] Stop: 11/01/18 08:59 Last Admin: 10/02/18 08:17 Dose: 50 mg Documented by: Rosuvastatin Calcium (Crestor) 10 mg PO QAM [facility] Stop: 10/31/18 08:59 Last Admin: 10/02/18 08:17 Dose: 10 mg Documented by: Sodium Chloride ([place] Nasal) 1 - 2 sprays NA PRN PRN PRN Reason: Nasal Dryness/Congestion Stop: 10/30/18 17:05 Trazodone HCl (Desyrel) 50 mg PO HS PRN PRN Reason: insomnia Stop: 10/31/18 16:41 Last Admin: 10/01/18 21:51 Dose: 50 mg Documented by: Venlafaxine HCl (Effexor Extended Release) 75 mg PO QAM [facility] Stop: 10/31/18 08:59 Last Admin: 10/02/18 08:17 Dose: 75 mg Documented by: Post Discharge Appointments Psychiatrist Name of Psychiatrist: [facility] [place] - MARANDA Shannon Psychiatrist's Psychiatric Appointment Comment: [address] [place] [address] Therapist Name of Therapist: [facility]ri [facility] - Indira Therapist's Therapy Appointment Comment: [address] [place] [id number] Purchasing Buyer Name of Purchasing Buyer: None Contact Information Discharge Discharge Address: [address] [place] [id number] CPT Code CPT Code 31192 (1) HLD (hyperlipidemia) Hyperlipidemia type: unspecified Qualified Code(s): E78.5 - Hyperlipidemia, unspecified (2) Obesity Obesity type: unspecified obesity type Obesity classification: adult class 2 (BMI 35 - 39.9) Body mass index: BMI 37.0-37.9
[2018-10-02] MEDS: lamoTRIgine 100 MG TAB PO SCH (21:01)
[2018-10-02] MEDS ORDERED: QUETIAPINE FUMARATE 200 MG TAB PO SCH (22:00)
[2018-10-02] MEDS: TRAZODONE HCL 50 MG TAB PO PRN (22:32)
[2018-10-03] MEDS: ROSUVASTATIN CALCIUM 10 MG TAB PO SCH (07:45)
[2018-10-03] MEDS: VENLAFAXINE HCL XR 75 MG CAPXR PO SCH (07:45)
[2018-10-03] MEDS: QUETIAPINE FUMARATE 25 MG TABLET PO SCH (07:46)
[2018-10-03] MEDS: QUETIAPINE FUMARATE 25 MG TABLET PO PRN ×3 (09:14→17:16)
--- NOTE | 2018-10-03 09:43 | Psychiatric Progress Note ---
Date of Service October 03, 2018 Impression / Recommendations Impression 38-year-old male admitted voluntarily for inpatient psychiatric treatment due to increased restlessness/agitation and suicidal ideation with plan to end his life by shooting himself or hanging. Patient was brought to the ED by his father after reporting his worsening symptoms to his outpatient psychiatric provider. Patient reports primary concerns at this time are prominent thoughts of suicide, and racing thoughts causing restlessness and agitation. Patient does not describe himself as depressed, rather he is in a more elevated state with regards to a diagnosed bipolar presentation. At admission the provider reviewed previous medication history with the patient, who reported a desire to return to quetiapine as he had found it previously helpful to manage his racing scattered thoughts. Started at admission on 50 mg of quetiapine every morning and 100 mg at bedtime available to the patient. Patient benefited from a as needed dose of quetiapine, and therefore will have 25 mg as needed doses available. Patient was encouraged to attempt sleep with current bedtime medications; however, we will have as needed trazodone 50 mg available if necessary for insomnia here on the unit. Patient is agreed to continuing lamotrigine at current dose of 200 mg at bedtime. He agreed to continuing venlafaxine at 75 mg every morning. He declined a trial of metformin in combination with quetiapine, due to current elevated BMI and previously reported weight gain with the medication. Patient continues to be encouraged to participate in group and recreational programming while he is admitted to the unit. We will continue to encourage him to consider including outpatient supports. At this time, patient continues to endorse suicidal ideation with inability to contract for safety outside of the inpatient setting. He is requesting medication adjustments which may be completed more effectively on the inpatient unit. At this time he is at high risk of harm to himself if discharged prematurely, therefore inpatient psychiatric treatment is medically necessary. (1) Suicidal ideation: 10/01 and on - Admitted to a locked inpatient behavioral health unit, on q15 minute safety checks - Encourage medication initiation/adjustments as indicated - Encourage participation in group and recreational therapies - Gather collateral information from outpatient providers - Suggest family meeting to involve outpatient supports in safety planning - Arrange appropriate aftercare - 10/02 family meeting parents to secure gun, and pills -10/03 SW to call family to secure the rope (2) Mood disorder: 10/01 and 10/02 - Current diagnosis of bipolar I disorder, though patient's perception of symptoms does not appear to be consistent - Attempt to clarify criteria with psychiatric prescriber - Pt requesting retrial of quetiapine. Will discontinue ziprasidone (received 60mg total today), initiate 100mg of quetiapine this evening - Schedule 50mg quetiapine qAM and 100mg qHS - Could consider ongoing titration of venlafaxine as tolerated - with close observation for activation/increased restlessness - Continue lamotrigine 200mg qHS - Will add trazodone 50mg prn for sleep - pt encouraged to trial quetiapine first 10/03 - ongoing high anxiety alongside low mood, increase seroquel to 300mg/hs, and as noted for anxiety addition of buspar titrating 7.5mg today divided and 10mg po bid thereafter, will continue effexor XR at 75mg for now with consideration of further titration (3) Generalized anxiety disorder: 10/01 and 10/02 - Continue venlafaxine 75mg daily - prn quetiapine 25mg available for acute anxiety, as patient feels hydroxyzine is ineffective 10/03 - added buspar 7.5mg today divided, and 10mg po bid thereafter, continue effexor XR 75mg (4) HLD (hyperlipidemia): 10/01 - Outpatient fasting blood work reviewed (07/06/2018) - Total cholesterol elevated at 255; triglycerides elevated at 200; LDL elevated at 172. - Fasting glucose was WNL at 86. - Will repeat fasting blood work to have updated 3 month values; especially with the consideration for additional medication changes 10/02 - metabolic labs all WNL today (5) Obesity: 10/01 and 10/02 - BMI - 37.3; was offered trial of metformin as part of medication regimen to offset weight gain likely with re-trial of quetiapine - Pt deferred offer at this time, stating he will consider when he returns to outpatient setting Inventory Assets Strengths: willingness for treatment, support of family, established outpatient providers Needs: resolution of SI, effective coping strategies Risk Factors Assessment Male: Yes : Yes Do You Have Access To A Gun?: Yes (states was secured by father; will need to confirm) Health Problems: Yes Mental Health Diagnoses: Yes Substance Use Disorders: No (Hx of alcohol abuse, last drink over 1 year ago) Previous Attempt: Yes (interrupted attempt, was set-up to hang himself in his garage) Previous Attempt; Didn't Tell Anyone: Yes Family History of Suicide: No Previous Psychiatric Hospitalization: No Hopelessness: Yes Smoker: No Protective Factors Assessment Sikhism Beliefs: Yes : No Responsible for Young Children: No 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 Review of Systems Sleep Information Total Hours of Sleep: 7.75 Sleep Comments: received a prn dose of desyrel along with his scheduled sleep meds awakened shortly after 0500 from a pt's raised voice in the next room Meal Information Percent Meal Consumed - Breakfast: 0 Percent Meal Consumed - Dinner: 25 Subjective Subjective Patient was seen & assessed and interval progress reviewed with Treatment Team. He notes he was feeling more restless physically as well as thought hunter last evening, "could not wait for my night medications" He stated he did not sleep as well last night, and historically does not get benefit form vistaril so did not ask for it at hs. He received no benefit form prn dosing of vistaril for anxiety yesterday in the day. He denies overt panic. He states he feels less anxious this AM after his 50mg seroquel dose. He notes he continues to feel down and anxious "I just want to feel better." He denies active thoughts to harm himself today on the unit but reports "I worry what I would do to myself if I continued to feel this bad after I leave the hospital" He wants to isolate today and has been staying in his room "it feels like too much to be around people and then noise and groups. He is eating okay, he does have some hopelessness, and helplessness, and worthlessness, he denies HI. He has limited interest. Physical Exam Psychiatric Orientation: alert, oriented x 3 and cooperative Apperance: appropriately dressed and appropriately groomed Eye Contact: good eye contact Motor Behavior: steady gait and station and no abnormal motor movements Speech: normal rate/rhythm/volume of speech ( spontaneous, anxious) Affect: + anxious affect and + flat affect Mood: + anxious mood; no depressed mood ("down, but anxiety is more my concern right now") Thought Process: goal directed thought process, linear/logical thought process and clear/coherent thought process Thought Content: reality based without delusions Suicidal Thoughts: denies suicidal intent (had been sleeping with his gun and driving around with a rope in his car); + reports suicidal thoughts (since admission has passive SI, denies intention or plan on the unit) and + reports suicidal plan (reports plan to shoot or hang himself prior to inpatient) Homicidal Thoughts: denies homicidal thoughts Hallucinations: no auditory hallucinations and no visual hallucinations Cognition: recent memory grossly intact, remote memory grossly intact, attention grossly intact and language grossly intact Estimated Intelligence: consistent with education level Insight: + limited insight Judgement: + limited judgement Vital Signs (Past 24 Hours) Last Vital Signs Temp 36.6 C 10/03/18 06:32 Pulse 99 H 10/03/18 06:33 Resp 18 10/03/18 06:32 BP 122/83 10/03/18 06:33 Pulse Ox 96 09/30/18 16:56 Results & Data Current Inpatient Medications Current Inpatient Medications: Current Inpatient Medications Acetaminophen (Tylenol) 650 mg PO Q4H PRN PRN Reason: Headache or Minor Fever Stop: 10/30/18 17:05 Al Hydrox/Mg Hydrox/Simethicone (Maalox) 30 ml PO Q4H PRN PRN Reason: GI Upset Stop: 10/30/18 17:05 Bismuth Subsalicylate (Kaopectate) 15 ml PO PRN PRN PRN Reason: Loose Stool Stop: 10/30/18 17:05 Hydroxyzine HCl (Vistaril) 25 mg PO Q4H PRN PRN Reason: Anxiety Stop: 10/30/18 17:05 Last Admin: 10/02/18 17:06 Dose: 25 mg Documented by: Hydroxyzine HCl (Vistaril) 50 mg PO HSZ PRN PRN Reason: Insomnia Stop: 10/30/18 17:05 Last Admin: 10/01/18 23:07 Dose: 50 mg Documented by: Lamotrigine (Lamictal) 200 mg PO HS JAMIE Stop: 10/30/18 21:59 Last Admin: 10/02/18 21:01 Dose: 200 mg Documented by: Magnesium Hydroxide (Milk Of Magnesia) 30 ml PO DAILY PRN PRN Reason: Heartburn Stop: 10/30/18 17:05 Quetiapine Fumarate (Seroquel) 25 mg PO Q4H PRN PRN Reason: agitation/anxiety Stop: 10/31/18 11:29 Last Admin: 10/03/18 09:14 Dose: 25 mg Documented by: Quetiapine Fumarate (Seroquel) 50 mg PO QAM JAMIE Stop: 11/01/18 08:59 Last Admin: 10/03/18 07:46 Dose: 50 mg Documented by: Quetiapine Fumarate (Seroquel) 200 mg PO HS JAMIE Stop: 11/01/18 21:59 Last Admin: 10/02/18 21:01 Dose: 200 mg Documented by: Rosuvastatin Calcium (Crestor) 10 mg PO QAM JAMIE Stop: 10/31/18 08:59 Last Admin: 10/03/18 07:45 Dose: 10 mg Documented by: Sodium Chloride ([place] Nasal) 1 - 2 sprays NA PRN PRN PRN Reason: Nasal Dryness/Congestion Stop: 10/30/18 17:05 Trazodone HCl (Desyrel) 50 mg PO HS PRN PRN Reason: insomnia Stop: 10/31/18 16:41 Last Admin: 10/02/18 22:32 Dose: 50 mg Documented by: Venlafaxine HCl (Effexor Extended Release) 75 mg PO QAM [facility] Stop: 10/31/18 08:59 Last Admin: 10/03/18 07:45 Dose: 75 mg Documented by: Post Discharge Appointments Psychiatrist Name of Psychiatrist: [facility] - MARANDA Shannon Psychiatrist's Psychiatric Appointment Comment: [address] [place] [place] [address] Therapist Name of Therapist: [facility] - Indira Therapist's Therapy Appointment Comment: [address] [place] [id number] Clamp Jig Assembler Name of Clamp Jig Assembler: None Contact Information Discharge Discharge Address: [address] [place] [id number] CPT Code CPT Code 41482 (1) HLD (hyperlipidemia) Hyperlipidemia type: unspecified Qualified Code(s): E78.5 - Hyperlipidemia, unspecified (2) Obesity Obesity type: unspecified obesity type Obesity classification: adult class 2 (BMI 35 - 39.9) Body mass index: BMI 37.0-37.9
[2018-10-03] MEDS: ACETAMINOPHEN 325 MG TAB PO PRN (21:19)
[2018-10-03] MEDS: QUETIAPINE FUMARATE 100 MG TABLET PO SCH (21:19)
[2018-10-03] MEDS: lamoTRIgine 100 MG TAB PO SCH (21:19)
[2018-10-03] MEDS: TRAZODONE HCL 50 MG TAB PO PRN (21:43)
--- NOTE | 2018-10-04 09:13 | Psychiatric Progress Note ---
Date of Service October 04, 2018 Impression / Recommendations Impression 38-year-old male admitted voluntarily for inpatient psychiatric treatment due to increased restlessness/agitation and suicidal ideation with plan to end his life by shooting himself or hanging. Patient was brought to the ED by his father after reporting his worsening symptoms to his outpatient psychiatric provider. Patient reports primary concerns at this time are prominent thoughts of suicide, and racing thoughts causing restlessness and agitation. Patient does not describe himself as depressed, rather he is in a more elevated state with regards to a diagnosed bipolar presentation. At admission the provider reviewed previous medication history with the patient, who reported a desire to return to quetiapine as he had found it previously helpful to manage his racing scattered thoughts. Started at admission on 50 mg of quetiapine every morning and 100 mg at bedtime available to the patient. Patient benefited from a as needed dose of quetiapine, and therefore will have 25 mg as needed doses available. Patient was encouraged to attempt sleep with current bedtime medications; however, we will have as needed trazodone 50 mg available if necessary for insomnia here on the unit. Patient is agreed to continuing lamotrigine at current dose of 200 mg at bedtime. He agreed to continuing venlafaxine at 75 mg every morning. He declined a trial of metformin in combination with quetiapine, due to current elevated BMI and previously reported weight gain with the medication. Patient continues to be encouraged to participate in group and recreational programming while he is admitted to the unit. We will continue to encourage him to consider including outpatient supports. At this time, patient continues to endorse hopelessness and minimal improvement in mood and anxiety despite several medication changes. He continues to isolate but states he plans to try to participate more today in the milieu. He has inability to contract for safety outside of the inpatient setting. At this time he is at high risk of harm to himself if discharged prematurely, therefore inpatient psychiatric treatment is medically necessary. (1) Suicidal ideation: 10/01 and on - Admitted to a locked inpatient behavioral health unit, on q15 minute safety checks - Encourage medication initiation/adjustments as indicated - Encourage participation in group and recreational therapies - Gather collateral information from outpatient providers - Suggest family meeting to involve outpatient supports in safety planning - Arrange appropriate aftercare - 10/02 family meeting parents to secure gun, and pills -10/03 SW to call family to secure the rope (2) Mood disorder: 10/01 and 10/02 - Current diagnosis of bipolar I disorder, though patient's perception of symptoms does not appear to be consistent - Attempt to clarify criteria with psychiatric prescriber - Pt requesting retrial of quetiapine. Will discontinue ziprasidone (received 60mg total today), initiate 100mg of quetiapine this evening - Schedule 50mg quetiapine qAM and 100mg qHS - Could consider ongoing titration of venlafaxine as tolerated - with close observation for activation/increased restlessness - Continue lamotrigine 200mg qHS - Will add trazodone 50mg prn for sleep - pt encouraged to trial quetiapine first 10/03 - ongoing high anxiety alongside low mood, increase seroquel to 300mg/hs, and as noted for anxiety addition of buspar titrating 7.5mg today divided and 10mg po bid thereafter, will continue effexor XR at 75mg for now with consideration of further titration 10/04/18 - buspar at 10mg po bid, will advance effexor XR to 150mg this AM, and continue seroquel 300mg/hs, trazodone 50mg/hs for sleep, and lamictal 200mg. Polypharmacy is not ideal but patient states he beleives the seroquel qnd effexor helped him before and wishes to remain with those, buspar added to assist with anxiety (lamictal is presently a vestige that may help mood stability) - for now continue seroquel prn in the day but would like to phase this out as buspar takes hold OR optimize buspar to replace over the next few days. (3) Generalized anxiety disorder: 10/01 and 10/02 - Continue venlafaxine 75mg daily - prn quetiapine 25mg available for acute anxiety, as patient feels hydroxyzine is ineffective 10/03 - added buspar 7.5mg today divided, and 10mg po bid thereafter, continue effexor XR 75mg 10/04/18 - increase effexor to 150mg, and continue buspar 10mg po bid (4) HLD (hyperlipidemia): 10/01 - Outpatient fasting blood work reviewed (07/06/2018) - Total cholesterol elevated at 255; triglycerides elevated at 200; LDL elevated at 172. - Fasting glucose was WNL at 86. - Will repeat fasting blood work to have updated 3 month values; especially with the consideration for additional medication changes 10/02 - metabolic labs all WNL today (5) Obesity: 10/01 and 10/02 - BMI - 37.3; was offered trial of metformin as part of medication regimen to offset weight gain likely with re-trial of quetiapine - Pt deferred offer at this time, stating he will consider when he returns to outpatient setting Inventory Assets Strengths: willingness for treatment, support of family, established outpatient providers Needs: resolution of SI, effective coping strategies Risk Factors Assessment Male: Yes : Yes Do You Have Access To A Gun?: Yes (states was secured by father; will need to confirm) Health Problems: Yes Mental Health Diagnoses: Yes Substance Use Disorders: No (Hx of alcohol abuse, last drink over 1 year ago) Previous Attempt: Yes (interrupted attempt, was set-up to hang himself in his garage) Previous Attempt; Didn't Tell Anyone: Yes Family History of Suicide: No Previous Psychiatric Hospitalization: No Hopelessness: Yes Smoker: No Protective Factors Assessment Jew Beliefs: Yes : No Responsible for Young Children: No 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 Review of Systems Sleep Information Total Hours of Sleep: 7.75 Sleep Comments: pt on q-15 minute checks. pt given trazodone per rn. Meal Information Percent Meal Consumed - Breakfast: 0 Percent Meal Consumed - Lunch: 50 Percent Meal Consumed - Dinner: 50 Subjective Subjective Patient was seen & assessed and interval progress reviewed with Treatment Team He continued to be anxious and restless through yesterday isolative to his room. Carisaanthony notes he is still anxious today 7/10 (10 worst, 0 none) but less restless since buspar, he notes he is still depressed at a 4/10 (10 best, 0 worst) but that is not as bad as when he came at a 0/10. He continues to have some hopelessness wanting to get better to get back to work but is not sure that anything feels more hopeful or different. He has some dry mouth with med changes but otherwise denies SE. Vitals show mild orthostasis but he denies having s/sx when changing positions. He denies suicidal ideations intention or plan on the unit, but again feels somewhat bleak about his future and what has changed and feels the ongoing high anxiety and low mood although showing the beginning of change are still significant. He does have h/h/w at this time, and cannot state he would be able to keep from hurting himself if he were not in the hospital. When asked patient states his goals today are to call his employer to report that he will not be at work early this week to avoid disciplinary action, as well as attempt to attend groups and be out of his room now that he is slightly less restless. Physical Exam Psychiatric Orientation: alert, oriented x 3 and cooperative Apperance: appropriately dressed and appropriately groomed Eye Contact: good eye contact Motor Behavior: steady gait and station and no abnormal motor movements Speech: normal rate/rhythm/volume of speech ( spontaneous, but negative content and sad depressed tone) Affect: + anxious affect and + flat affect Mood: + depressed mood and + anxious mood Thought Process: goal directed thought process, linear/logical thought process and clear/coherent thought process Thought Content: reality based without delusions Suicidal Thoughts: denies suicidal intent (had been sleeping with his gun and driving around with a rope in his car); + reports suicidal thoughts (feels safe here but still hopeless cannot contract for safety off the unit) and + reports suicidal plan (reports plan to shoot or hang himself prior to inpatient) Homicidal Thoughts: denies homicidal thoughts Hallucinations: no auditory hallucinations and no visual hallucinations Cognition: recent memory grossly intact, remote memory grossly intact, attention grossly intact and language grossly intact Estimated Intelligence: consistent with education level Insight: + limited insight and + impaired insight Judgement: + limited judgement and + impaired judgement Vital Signs (Past 24 Hours) Last Vital Signs Temp 36.6 C 10/04/18 06:48 Pulse 112 H 10/04/18 06:48 Resp 18 10/04/18 06:48 BP 134/89 10/04/18 06:48 Pulse Ox 96 09/30/18 16:56 Results & Data Current Inpatient Medications Current Inpatient Medications: Current Inpatient Medications Acetaminophen (Tylenol) 650 mg PO Q4H PRN PRN Reason: Headache or Minor Fever Stop: 10/30/18 17:05 Last Admin: 10/03/18 21:19 Dose: 650 mg Documented by: Al Hydrox/Mg Hydrox/Simethicone (Maalox) 30 ml PO Q4H PRN PRN Reason: GI Upset Stop: 10/30/18 17:05 Bismuth Subsalicylate (Kaopectate) 15 ml PO PRN PRN PRN Reason: Loose Stool Stop: 10/30/18 17:05 Buspirone HCl (Buspar) 10 mg PO BID17 [facility] Stop: 11/02/18 17:44 Last Admin: 10/03/18 17:59 Dose: Not Given Documented by: Hydroxyzine HCl (Vistaril) 50 mg PO HSZ PRN PRN Reason: Insomnia Stop: 10/30/18 17:05 Last Admin: 10/01/18 23:07 Dose: 50 mg Documented by: Lamotrigine (Lamictal) 200 mg PO HS [facility] Stop: 10/30/18 21:59 Last Admin: 10/03/18 21:19 Dose: 200 mg Documented by: Magnesium Hydroxide (Milk Of Magnesia) 30 ml PO DAILY PRN PRN Reason: Heartburn Stop: 10/30/18 17:05 Quetiapine Fumarate (Seroquel) 25 mg PO Q4H PRN PRN Reason: agitation/anxiety Stop: 10/31/18 11:29 Last Admin: 10/03/18 17:16 Dose: 25 mg Documented by: Quetiapine Fumarate (Seroquel) 300 mg PO HS [facility] Stop: 11/02/18 21:59 Last Admin: 10/03/18 21:19 Dose: 300 mg Documented by: Rosuvastatin Calcium (Crestor) 10 mg PO QAM [facility] Stop: 10/31/18 08:59 Last Admin: 10/03/18 07:45 Dose: 10 mg Documented by: Sodium Chloride ([place] Nasal) 1 - 2 sprays NA PRN PRN PRN Reason: Nasal Dryness/Congestion Stop: 10/30/18 17:05 Trazodone HCl (Desyrel) 50 mg PO HS PRN PRN Reason: insomnia Stop: 10/31/18 16:41 Last Admin: 10/03/18 21:43 Dose: 50 mg Documented by: Venlafaxine HCl (Effexor Extended Release) 75 mg PO QAM [facility] Stop: 10/31/18 08:59 Last Admin: 10/03/18 07:45 Dose: 75 mg Documented by: Post Discharge Appointments Psychiatrist Name of Psychiatrist: [facility] - MARANDA Shannon Psychiatrist's Psychiatric Appointment Comment: [address] [place] [address] Therapist Name of Therapist: Sherri Smith - [facility] Therapist's Therapy Appointment Comment: [address] [place] [address] Breeding Technician Name of Breeding Technician: None Contact Information Discharge Discharge Address: [address] [place] [id number] CPT Code CPT Code 16351 (1) HLD (hyperlipidemia) Hyperlipidemia type: unspecified Qualified Code(s): E78.5 - Hyperlipidemia, unspecified (2) Obesity Obesity type: unspecified obesity type Obesity classification: adult class 2 (BMI 35 - 39.9) Body mass index: BMI 37.0-37.9
[2018-10-04] MEDS: ROSUVASTATIN CALCIUM 10 MG TAB PO SCH (09:27)
[2018-10-04] MEDS: VENLAFAXINE HCL XR 150 MG CAPXR PO SCH (09:59)
[2018-10-04] MEDS: QUETIAPINE FUMARATE 25 MG TABLET PO PRN ×2 (14:41→19:23)
[2018-10-04] MEDS: TRAZODONE HCL 50 MG TAB PO PRN (21:45)
[2018-10-04] MEDS: QUETIAPINE FUMARATE 100 MG TABLET PO SCH (21:45)
[2018-10-04] MEDS: ACETAMINOPHEN 325 MG TAB PO PRN (21:45)
[2018-10-04] MEDS: lamoTRIgine 100 MG TAB PO SCH (21:46)
[2018-10-05] MEDS: QUETIAPINE FUMARATE 25 MG TABLET PO PRN ×4 (00:55→19:09)
[2018-10-05] MEDS: ROSUVASTATIN CALCIUM 10 MG TAB PO SCH (08:35)
[2018-10-05] MEDS: VENLAFAXINE HCL XR 150 MG CAPXR PO SCH (08:36)
--- NOTE | 2018-10-05 12:33 | Psychiatric Progress Note ---
Date of Service October 05, 2018 Impression / Recommendations Impression Patient admitting to ongoing anxiety, racing thoughts, and suicidal ideation. Admits these concerns have slowly been improving, but continued to cause him some concern. Patient is open about his inability to contract for safety outside of the hospital setting. We discussed several medication changes which may benefit overall level of anxiety. Patient is agreeable to taking buspirone 10 mg 3 times daily with meals. He is willing to continue venlafaxine ER at its current dose of 150 mg. We will plan to continue 300 mg of quetiapine and 200 mg of lamotrigine at bedtime. Patient is requesting titration of trazodone to 100 mg as needed for sleep, as he states he continues to have difficulty falling asleep and staying asleep. This provider did review signs and symptoms of serotonin syndrome with the patient. We identified several medications which affect serotonin levels, especially as patient is requesting changes to several of these medications today. Patient verbalized understanding of the conver sation and asked appropriate questions. After this discussion, patient remains agreeable to titration of trazodone and buspirone at this time. At this time he is at high risk of harm to himself if discharged prematurely, therefore inpatient psychiatric treatment is medically necessary. (1) Suicidal ideation: 10/01 and on - Admitted to a locked inpatient behavioral health unit, on q15 minute safety checks - Encourage medication initiation/adjustments as indicated - Encourage participation in group and recreational therapies - Gather collateral information from outpatient providers - Suggest family meeting to involve outpatient supports in safety planning - Arrange appropriate aftercare - 10/02 family meeting parents to secure gun, and pills -10/03 SW to call family to secure the rope but 10/05 - Admits to ongoing episodic SI, unable to contract for safety outside of the hospital setting (2) Mood disorder: 10/01 and 10/02 - Current diagnosis of bipolar I disorder, though patient's perception of symptoms does not appear to be consistent - Attempt to clarify criteria with psychiatric prescriber - Pt requesting retrial of quetiapine. Will discontinue ziprasidone (received 60mg total today), initiate 100mg of quetiapine this evening - Schedule 50mg quetiapine qAM and 100mg qHS - Could consider ongoing titration of venlafaxine as tolerated - with close observation for activation/increased restlessness - Continue lamotrigine 200mg qHS - Will add trazodone 50mg prn for sleep - pt encouraged to trial quetiapine first 10/03 - ongoing high anxiety alongside low mood, increase seroquel to 300mg/hs, and as noted for anxiety addition of buspar titrating 7.5mg today divided and 10mg po bid thereafter, will continue effexor XR at 75mg for now with consideration of further titration 10/04/18 - buspar at 10mg po bid, will advance effexor XR to 150mg this AM, and continue seroquel 300mg/hs, trazodone 50mg/hs for sleep, and lamictal 200mg. Polypharmacy is not ideal but patient states he beleives the seroquel qnd effexor helped him before and wishes to remain with those, buspar added to assist with anxiety (lamictal is presently a vestige that may help mood stability) - for now continue seroquel prn in the day but would like to phase this out as buspar takes hold OR optimize buspar to replace over the next few days. 10/05 - Buspirone titrated to 10mg TIDM to target anxiety - Continue venlafaxine ER 150mg, quetiapine 300mg, and lamotrigine 200mg - Will offer higher dose of trazodone 100mg prn insomnia, as patient reporting persistent difficulty sleeping - Educated on signs and symptoms of serotonin syndrome, especially as these doses are being adjusted (3) Generalized anxiety disorder: 10/01 and 10/02 - Continue venlafaxine 75mg daily - prn quetiapine 25mg available for acute anxiety, as patient feels hydroxyzi ne is ineffective 10/03 - added buspar 7.5mg today divided, and 10mg po bid thereafter, continue effexor XR 75mg 10/04/18 - increase effexor to 150mg, and continue buspar 10mg po bid 10/05 - Continue venlafaxine 150mg - Buspirone titrated to 10mg TIDM (4) HLD (hyperlipidemia): 10/01 - Outpatient fasting blood work reviewed (07/06/2018) - Total cholesterol elevated at 255; triglycerides elevated at 200; LDL elevated at 172. - Fasting glucose was WNL at 86. - Will repeat fasting blood work to have updated 3 month values; especially with the consideration for additional medication changes 10/02 - metabolic labs all WNL today (5) Obesity: 10/01 and 10/02 - BMI - 37.3; was offered trial of metformin as part of medication regimen to offset weight gain likely with re-trial of quetiapine - Pt deferred offer at this time, stating he will consider when he returns to outpatient setting Inventory Assets Strengths: willingness for treatment, support of family, established outpatient providers Needs: resolution of SI, effective coping strategies Risk Factors Assessment Male: Yes : Yes Do You Have Access To A Gun?: Yes (states was secured by father; will need to confirm) Health Problems: Yes Mental Health Diagnoses: Yes Substance Use Disorders: No (Hx of alcohol abuse, last drink over 1 year ago) Previous Attempt: Yes (interrupted attempt, was set-up to hang himself in his garage) Previous Attempt; Didn't Tell Anyone: Yes Family History of Suicide: No Previous Psychiatric Hospitalization: No Hopelessness: Yes Smoker: No Protective Factors Assessment Latter-Day Beliefs: Yes : No Responsible for Young Children: No 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 Pt has a reported diagnosis of bipolar I disorder and generalized anxiety disorder, currently established with outpatient psychiatric providers. Pt was admitted on 09/30/18 17:06 on a 201 voluntary commitment for increased agitation/restlessness and suicidal ideation with plan to either shoot or hang himself. Chief Complaint "Um, ok. I had a rough night last night." Review of Systems Notes Constitutional: reports continued difficulty falling and staying asleep Cardiovascular: denied Respiratory: denied Gastrointestinal: denied Neurological: denied Psychiatric: denies symptoms other than stated above Total of at least 10 systems reviewed, pertinent positives as above and in HPI. Sleep Information Total Hours of Sleep: 6.25 Sleep Comments: pt given vistaril per rn. pt on q-15 minute checks Meal Information Percent Meal Consumed - Breakfast: 0 Percent Meal Consumed - Lunch: 50 Percent Meal Consumed - Dinner: 25 Subjective Subjective Patient was seen & assessed and interval progress reviewed with Treatment Team. Staff reports the patient continues to display a flat and anxious affect. Patient had reported feeling "jittery" yesterday, questioning if this was related to titration of venlafaxine ER. It is reported the patient participated in a family meeting with his parents over the weekend. Patient was seen today to assess progress since admission. He states that he is feeling a bit better today, stating he had a rough night last evening and a "bad day yesterday." Patient states that he has struggled yesterday with increased racing thoughts which then developed into suicidal ideation. He states last evening the racing thoughts continued, and he had a restless night sleep. Patient believes that he also experienced a panic attack causing him to awaken from sleep last evening as well. Reviewed patient's reports of feeling "more jittery". Patient now believes that this may have been related to increased caffeine intake yesterday, as he states this feeling has not persisted. Only reported side effect to medications at this time is "moderate dry mouth", patient feeling it is not severe enough to adjust medications accordingly. Overall patient feels that anxiety has been improving. Suicidal ideation persists, but is becoming less overwhelming. He continues to be unable to contract for safety outside of the hospital setting. Patient denies any other specific needs or concerns at this time. Physical Exam Psychiatric Orientation: alert, oriented x 3 and cooperative Apperance: appropriately dressed and appropriately groomed Eye Contact: good eye contact Motor Behavior: steady gait and station and no abnormal motor movements Observed to be walking laps around the unit for most of the day Speech: normal rate/rhythm/volume of speech (Monotone) Affect: + anxious affect and + flat affect Mood: + depressed mood and + anxious mood "Okay" and "some racing thoughts" Thought Process: goal directed thought process and clear/coherent thought process Thought Content: reality based without delusions Suicidal Thoughts: + reports suicidal thoughts (Episodic, generally triggered by anxiety) Homicidal Thoughts: denies homicidal thoughts Hallucinations: no auditory hallucinations and no visual hallucinations Cognition: recent memory grossly intact, remote memory grossly intact, attention grossly intact and language grossly intact Estimated Intelligence: consistent with education level Insight: + impaired insight Judgement: + impaired judgement Vital Signs (Past 24 Hours) Last Vital Signs Temp 36.7 C 10/05/18 06:39 Pulse 118 H 10/05/18 06:40 Resp 18 10/05/18 06:39 BP 125/74 10/05/18 06:40 Pulse Ox 96 09/30/18 16:56 Results & Data Current Inpatient Medications Current Inpatient Medications: Current Inpatient Medications Acetaminophen (Tylenol) 650 mg PO Q4H PRN PRN Reason: Headache or Minor Fever Stop: 10/30/18 17:05 Last Admin: 10/04/18 21:45 Dose: 650 mg Documented by: Al Hydrox/Mg Hydrox/Simethicone (Maalox) 30 ml PO Q4H PRN PRN Reason: GI Upset Stop: 10/30/18 17:05 Bismuth Subsalicylate (Kaopectate) 15 ml PO PRN PRN PRN Reason: Loose Stool Stop: 10/30/18 17:05 Buspirone HCl (Buspar) 10 mg PO BID17 [facility] Stop: 11/02/18 17:44 Last Admin: 10/05/18 08:35 Dose: 10 mg Documented by: Hydroxyzine HCl (Vistaril) 50 mg PO HSZ PRN PRN Reason: Insomnia Stop: 10/30/18 17:05 Last Admin: 10/01/18 23:07 Dose: 50 mg Documented by: Lamotrigine (Lamictal) 200 mg PO HS [facility] Stop: 10/30/18 21:59 Last Admin: 10/04/18 21:46 Dose: 200 mg Documented by: Magnesium Hydroxide (Milk Of Magnesia) 30 ml PO DAILY PRN PRN Reason: Heartburn Stop: 10/30/18 17:05 Quetiapine Fumarate (Seroquel) 25 mg PO Q4H PRN PRN Reason: agitation/anxiety Stop: 10/31/18 11:29 Last Admin: 10/05/18 08:35 Dose: 25 mg Documented by: Quetiapine Fumarate (Seroquel) 300 mg PO HS [facility] Stop: 11/02/18 21:59 Last Admin: 10/04/18 21:45 Dose: 300 mg Documented by: Rosuvastatin Calcium (Crestor) 10 mg PO QAM [facility] Stop: 10/31/18 08:59 Last Admin: 10/05/18 08:35 Dose: 10 mg Documented by: Sodium Chloride ([place] Nasal) 1 - 2 sprays NA PRN PRN PRN Reason: Nasal Dryness/Congestion Stop: 10/30/18 17:05 Trazodone HCl (Desyrel) 50 mg PO HS PRN PRN Reason: insomnia Stop: 10/31/18 16:41 Last Admin: 10/04/18 21:45 Dose: 50 mg Documented by: Venlafaxine HCl (Effexor Extended Release) 150 mg PO QAM JAMIE Stop: 11/03/18 09:14 Last Admin: 10/05/18 08:36 Dose: 150 mg Documented by: Post Discharge Appointments Psychiatrist Name of Psychiatrist: [facility] - MARANDA Shannon Psychiatrist's Psychiatric Appointment Comment: [address] [place] [address] Therapist Name of Therapist: Sherri Smith - Indira Therapist's Therapy Appointment Comment: [address] [place] [id number] [employer] Account Executive Name of Marketing Account Executive: None Contact Information Discharge Discharge Address: [address] [place] [address] CPT Code CPT Code 03553 (1) HLD (hyperlipidemia) Hyperlipidemia type: unspecified Qualified Code(s): E78.5 - Hyperlipidemia, unspecified (2) Obesity Body mass index: BMI 37.0-37.9 Obesity classification: adult class 2 (BMI 35 - 39.9) Obesity type: unspecified obesity type
[2018-10-05] MEDS: lamoTRIgine 100 MG TAB PO SCH (21:14)
[2018-10-05] MEDS: QUETIAPINE FUMARATE 100 MG TABLET PO SCH (21:15)
[2018-10-05] MEDS: ACETAMINOPHEN 325 MG TAB PO PRN (21:16)
[2018-10-05] MEDS: TRAZODONE HCL 50 MG TAB PO PRN (21:56)
[2018-10-06] MEDS: VENLAFAXINE HCL XR 150 MG CAPXR PO SCH (09:23)
[2018-10-06] MEDS: ROSUVASTATIN CALCIUM 10 MG TAB PO SCH (09:24)
[2018-10-06] MEDS: QUETIAPINE FUMARATE 25 MG TABLET PO PRN ×3 (10:23→20:28)
--- NOTE | 2018-10-06 12:18 | Psychiatric Progress Note ---
Date of Service October 06, 2018 Impression / Recommendations Impression Although there has been mild improvement in anxiety, racing thoughts, and suicidal ideation, patient continues to report severe depression with suicidal thoughts on a daily basis, and remains unable to contract for safety outside of the hospital setting. He has had numerous medication adjustments and additions here, and does think they are helping and that he is improving. We will need to encourage him to attend to participate actively in programming and therapy, as this has been difficult for him due to the severity of his depression. He remains at high risk of harm to himself if discharged, and inpatient psychiatric treatment is medically necessary. (1) Suicidal ideation: 10/01 and on - Admitted to a locked inpatient behavioral health unit, on q15 minute safety checks - Encourage medication initiation/adjustments as indicated - Encourage participation in group and recreational therapies - Gather collateral information from outpatient providers - Suggest family meeting to involve outpatient supports in safety planning - Arrange appropriate aftercare - 10/02 family meeting parents to secure gun, and pills - 10/03 SW to call family to secure the rope 10/05 - Admits to ongoing episodic SI, unable to contract for safety outside of the hospital setting 10/06 - Patient's mother plans to secure guns in a safe, and removed the rope from his car (which he got to hang himself). Present on Admission?: Yes (2) Bipolar disorder: 10/01 and 10/02 - Current diagnosis of bipolar I disorder, though patient's perception of symptoms does not appear to be consistent - Attempt to clarify criteria with psychiatric prescriber - Pt requesting retrial of quetiapine. Will discontinue ziprasidone (received 60mg total today), initiate 100mg of quetiapine this evening - Schedule 50mg quetiapine qAM and 100mg qHS - Could consider ongoing titration of venlafaxine as tolerated - with close observation for activation/increased restlessness - Continue lamotrigine 200mg qHS - Will add trazodone 50mg prn for sleep - pt encouraged to trial quetiapine first 10/03 - ongoing high anxiety alongside low mood, increase seroquel to 300mg/hs, and as noted for anxiety addition of buspar titrating 7.5mg today divided and 10mg po bid thereafter, will continue effexor XR at 75mg for now with consideration of further titration 10/04/18 - buspar at 10mg po bid, will advance effexor XR to 150mg this AM, and continue seroquel 300mg/hs, trazodone 50mg/hs for sleep, and lamictal 200mg. Polypharmacy is not ideal but patient states he believes the seroquel and effexor helped him before and wishes to remain with those, buspar added to assist with anxiety (lamictal is presently a vestige that may help mood stability) - for now continue seroquel prn in the day but would like to phase this out as buspar takes hold OR optimize buspar to replace over the next few days. 10/05 - Buspirone titrated to 10mg TIDM to target anxiety - Continue venlafaxine ER 150mg, quetiapine 300mg, and lamotrigine 200mg - Will offer higher dose of trazodone 100mg prn insomnia, as patient reporting persistent difficulty sleeping - Educated on signs and symptoms of serotonin syndrome, especially as these doses are being adjusted 10/06 - Continue current medications as above. Encourage attendance and participation in groups and therapy. - [facility]. - Spoke with patient's mother at her request and answered questions about treatment. Present on Admission?: Yes (3) Generalized anxiety disorder: 10/01 and 10/02 - Continue venlafaxine 75mg daily - prn quetiapine 25mg available for acute anxiety, as patient feels hydroxyzine is ineffective 10/03 - added Buspar 7.5mg today divided, and 10mg po bid thereafter, continue Effexor XR 75mg 10/04/18 - increase Effexor to 150mg, and continue Buspar 10mg po bid 10/05 - Continue venlafaxine 150mg - Buspirone titrated to 10mg TIDM Present on Admission?: Yes (4) HLD (hyperlipidemia): 10/01 - Outpatient fasting blood work reviewed (07/06/2018) - Total cholesterol elevated at 255; triglycerides elevated at 200; LDL elevated at 172. - Fasting glucose was WNL at 86. - Will repeat fasting blood work to have updated 3 month values; especially with the consideration for additional medication changes 10/02 - Metabolic labs all WNL today Present on Admission?: Yes (5) Obesity: 10/01 and 10/02 - BMI - 37.3; was offered trial of metformin as part of medication regimen to offset weight gain likely with re-trial of quetiapine - Pt deferred offer at this time, stating he will consider when he returns to outpatient setting Present on Admission?: Yes (6) Alcohol abuse: Present on Admission?: Yes Inventory Assets Strengths: willingness for treatment, support of family, established outpatient providers Needs: resolution of SI, effective coping strategies Risk Factors Assessment Male: Yes : Yes Do You Have Access To A Gun?: Yes (states was secured by father; will need to confirm) Health Problems: Yes Mental Health Diagnoses: Yes Substance Use Disorders: No (Hx of alcohol abuse, last drink over 1 year ago) Previous Attempt: Yes (interrupted attempt, was set-up to hang himself in his garage) Previous Attempt; Didn't Tell Anyone: Yes Family History of Suicide: No Previous Psychiatric Hospitalization: No Hopelessness: Yes Smoker: No Protective Factors Assessment Mu-Ism Beliefs: Yes : No Responsible for Young Children: No 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 Pt has a reported diagnosis of bipolar I disorder and generalized anxiety disorder, currently established with outpatient psychiatric providers. Pt was admitted on 09/30/18 17:06 on a 201 voluntary commitment for increased agitation/restlessness and suicidal ideation with plan to either shoot or hang himself. Chief Complaint "Better since I got here, but still not the greatest, still feel really down". Review of Systems Sleep Information Total Hours of Sleep: 7.25 Sleep Comments: pt given vistaril per rn. pt on q-15 minute checks Meal Information Percent Meal Consumed - Breakfast: 50 Percent Meal Consumed - Lunch: 50 Percent Meal Consumed - Dinner: 25 Subjective Subjective Patient was seen & assessed and interval progress reviewed with Treatment Team. Staff report he has difficulty tolerating groups, and is often pacing in the mac or isolating in his room, and is requesting frequent as needed medications for anxiety. He continues to endorse suicidal thoughts, and is not interacting spontaneously with others. hospitality workers contacted his counselor in [place], who stated she has seen him 3 times and was open to him transferring care somewhere closer and more convenient for him to allow for more frequent appointments. She suggested staff contact his [facility] beam press operator, but the patient refused to sign a release for that individual, stating he was not sure he would continue to work with them. His mother was contacted regarding removing the rope from his car, which he had purchased to hang himself. She indicated they were purchasing a safe to store the guns. On my assessment, the patient reports slightly improvement in racing thoughts and anxiety, but mood remains low, rating it a 3 out of 10. He continues to have suicidal thoughts daily, but they are less intense than on admission. He continues to ruminate on losing his job, being able to find another job, losing his health insurance, and losing the respect of his family "from being here." He recognizes this as catastrophic thinking, and that these things aren't highly likely to happen. He is now thinking that he may not return to his job as it was stressful. He is also thinking he would like to "get out of healthcare completely" and not continue with the nurse monitoring program and he doesn't like it. He does think the medication adjustments are helping, and the only side effect he's noted is dry mouth. Sleep is improving, but was disrupted by his roommate who had a difficult night. Appetite remains poor, feels he has to force himself to eat. He reports groups are hard for him as he doesn't want to contribute and has a hard time sitting still. Spoke with patient's mother at her request and with his permission. She wants to know how to "meet his emotional needs, short and dedicated intermodal truck driver." She says they are considering moving to [place] where she is from and has family, and wanted to know if that would be good for him or "too sudden." She has already talked to some therapists there to "make some contacts." Physical Exam Psychiatric Orientation: alert and cooperative Apperance: appropriately dressed and + disheveled Overweight male, appears older than stated age, limited hygiene and grooming. Eye Contact: + fair eye contact Motor Behavior: steady gait and station and no abnormal motor movements Monotone, nonspontaneous. Affect: + depressed affect, + constricted affect and mood congruent with affect Mood: + depressed mood Thought Process: goal directed thought process Thought Content: + hopelessness, + worthlessness and + guilt Suicidal Thoughts: + reports suicidal thoughts Homicidal Thoughts: denies homicidal thoughts Hallucinations: no auditory hallucinations and no visual hallucinations Cognition: recent memory grossly intact, attention grossly intact and language grossly intact Insight: + fair insight Judgement: + fair judgement Vital Signs (Past 24 Hours) Last Vital Signs Temp 36.6 C 10/06/18 06:44 Pulse 111 H 10/06/18 06:45 Resp 18 10/06/18 06:44 BP 105/69 10/06/18 06:45 Pulse Ox 96 09/30/18 16:56 Results & Data Current Inpatient Medications Current Inpatient Medications: Current Inpatient Medications Acetaminophen (Tylenol) 650 mg PO Q4H PRN PRN Reason: Headache or Minor Fever Stop: 10/30/18 17:05 Last Admin: 10/05/18 21:16 Dose: 650 mg Documented by: Al Hydrox/Mg Hydrox/Simethicone (Maalox) 30 ml PO Q4H PRN PRN Reason: GI Upset Stop: 10/30/18 17:05 Bismuth Subsalicylate (Kaopectate) 15 ml PO PRN PRN PRN Reason: Loose Stool Stop: 10/30/18 17:05 Buspirone HCl (Buspar) 10 mg PO TIDM JAMIE Stop: 11/04/18 12:59 Last Admin: 10/06/18 09:24 Dose: 10 mg Documented by: Hydroxyzine HCl (Vistaril) 50 mg PO HSZ PRN PRN Reason: Insomnia Stop: 10/30/18 17:05 Last Admin: 10/01/18 23:07 Dose: 50 mg Documented by: Lamotrigine (Lamictal) 200 mg PO HS [facility] Stop: 10/30/18 21:59 Last Admin: 10/05/18 21:14 Dose: 200 mg Documented by: Magnesium Hydroxide (Milk Of Magnesia) 30 ml PO DAILY PRN PRN Reason: Heartburn Stop: 10/30/18 17:05 Quetiapine Fumarate (Seroquel) 25 mg PO Q4H PRN PRN Reason: agitation/anxiety Stop: 10/31/18 11:29 Last Admin: 10/06/18 10:23 Dose: 25 mg Documented by: Quetiapine Fumarate (Seroquel) 300 mg PO HS [facility] Stop: 11/02/18 21:59 Last Admin: 10/05/18 21:15 Dose: 300 mg Documented by: Rosuvastatin Calcium (Crestor) 10 mg PO QAM JAMIE Stop: 10/31/18 08:59 Last Admin: 10/06/18 09:24 Dose: 10 mg Documented by: Sodium Chloride ([place] Nasal) 1 - 2 sprays NA PRN PRN PRN Reason: Nasal Dryness/Congestion Stop: 10/30/18 17:05 Trazodone HCl (Desyrel) 100 mg PO HS PRN PRN Reason: insomnia Stop: 10/31/18 16:41 Last Admin: 10/05/18 21:56 Dose: 100 mg Documented by: Venlafaxine HCl (Effexor Extended Release) 150 mg PO QAM JAMIE Stop: 11/03/18 09:14 Last Admin: 10/06/18 09:23 Dose: 150 mg Documented by: Post Discharge Appointments Psychiatrist Name of Psychiatrist: [facility] - MARNADA Shannon Psychiatrist's Psychiatric Appointment Comment: [address] [place] [address] Therapist Name of Therapist: Sherri Jacobson Therapist's Therapy Appointment Comment: [address] [place] [id number] Clinical Abstractor Name of Clinical Abstractor: None Contact Information Discharge Discharge Address: [address] [place] [address] CPT Code CPT Code 05187 (1) HLD (hyperlipidemia) Hyperlipidemia type: unspecified Qualified Code(s): E78.5 - Hyperlipidemia, unspecified (2) Obesity Body mass index: BMI 37.0-37.9 Obesity classification: adult class 2 (BMI 35 - 39.9) Obesity type: unspecified obesity type (3) Bipolar disorder Active/Remission status: currently active Current bipolar episode type: depressed Current episode severity: unspecified Qualified Code(s): F31.30 - Bipolar disorder, current episode depressed, mild or moderate severity, unspecified : Bipolar disorder Qualifiers: Active/Remission status: currently active Current bipolar episode type: depressed Current episode severity: unspecified Qualified Code(s): F31.30 - Bipolar disorder, current episode depressed, mild or moderate severity, unspecified
[2018-10-06] MEDS: QUETIAPINE FUMARATE 100 MG TABLET PO SCH (21:22)
[2018-10-06] MEDS: TRAZODONE HCL 50 MG TAB PO PRN (21:22)
[2018-10-06] MEDS: lamoTRIgine 100 MG TAB PO SCH (21:22)
[2018-10-06] MEDS: ACETAMINOPHEN 325 MG TAB PO PRN (21:22)
[2018-10-07] MEDS: VENLAFAXINE HCL XR 150 MG CAPXR PO SCH (08:44)
[2018-10-07] MEDS: ROSUVASTATIN CALCIUM 10 MG TAB PO SCH (08:44)
[2018-10-07] MEDS: QUETIAPINE FUMARATE 25 MG TABLET PO PRN ×2 (10:29→17:35)
--- NOTE | 2018-10-07 10:53 | Psychiatric Progress Note ---
Date of Service October 07, 2018 Impression / Recommendations Impression Although there has been mild improvement in anxiety, racing thoughts, and suicidal ideation, patient continues to report severe depression with suicidal thoughts on a daily basis, and remains unable to contract for safety outside of the hospital setting. He admits to ongoing thoughts that he could hang himself, feeling he may be "not as likely to try to act on it." He has had numerous medication adjustments and additions here, and is requesting more in order to address his ongoing heightened anxiety - which contributes to the suicidality. Will titrate buspirone to 15mg TIDM, as he feels buspirone is more effective than prn quetiapine. Pt has had some ongoing difficulty tolerating groups, and was encouraged to request additional information on the mindfulness and distraction techniques we discussed today. Pt has remained somewhat ambivalent about his aftercare plans, which would need to be arranged in order to ensure safety at discharge. He remains at high risk of decompensation and harm to himself if discharged prematurely. (1) Suicidal ideation: 10/01 and on - Admitted to a locked inpatient behavioral health unit, on q15 minute safety checks - Encourage medication initiation/adjustments as indicated - Encourage participation in group and recreational therapies - Gather collateral information from outpatient providers - Suggest family meeting to involve outpatient supports in safety planning - Arrange appropriate aftercare - 10/02 family meeting parents to secure gun, and pills - 10/03 SW to call family to secure the rope 10/05 - Admits to ongoing episodic SI, unable to contract for safety outside of the hospital setting 10/06 - Patient's mother plans to secure guns in a safe, and removed the rope from his car (which he got to hang himself). (2) Bipolar disorder: 10/01 and 10/02 - Current diagnosis of bipolar I disorder, though patient's perception of symptoms does not appear to be consistent - Attempt to clarify criteria with psychiatric prescriber - Pt requesting retrial of quetiapine. Will discontinue ziprasidone (received 60mg total today), initiate 100mg of quetiapine this evening - Schedule 50mg quetiapine qAM and 100mg qHS - Could consider ongoing titration of venlafaxine as tolerated - with close observation for activation/increased restlessness - Continue lamotrigine 200mg qHS - Will add trazodone 50mg prn for sleep - pt encouraged to trial quetiapine first 10/03 - ongoing high anxiety alongside low mood, increase seroquel to 300mg/hs, and as noted for anxiety addition of buspar titrating 7.5mg today divided and 10mg po bid thereafter, will continue effexor XR at 75mg for now with consideration of further titration 10/04/18 - buspar at 10mg po bid, will advance effexor XR to 150mg this AM, and continue seroquel 300mg/hs, trazodone 50mg/hs for sleep, and lamictal 200mg. Polypharmacy is not ideal but patient states he believes the seroquel and effexor helped him before and wishes to remain with those, buspar added to assist with anxiety (lamictal is presently a vestige that may help mood stability) - for now continue seroquel prn in the day but would like to phase this out as buspar takes hold OR optimize buspar to replace over the next few days. 10/05 - Buspirone titrated to 10mg TIDM to target anxiety - Continue venlafaxine ER 150mg, quetiapine 300mg, and lamotrigine 200mg - Will offer higher dose of trazodone 100mg prn insomnia, as patient reporting persistent difficulty sleeping - Educated on signs and symptoms of serotonin syndrome, especially as these doses are being adjusted 10/06 - Continue current medications as above. Encourage attendance and participation in groups and therapy. - Refer to [facility] for individual therapy. - Spoke with patient's mother at her request and answered questions about treatment. 10/07 - Continue current medication regimen for depression, buspirone titrated for anxiety as below - Encourage patient to solidify aftercare plan with staff assistance - Encourage participation in group programming (3) Generalized anxiety disorder: 10/01 and 10/02 - Continue venlafaxine 75mg daily - prn quetiapine 25mg available for acute anxiety, as patient feels hydroxyzine is ineffective 10/03 - added Buspar 7.5mg today divided, and 10mg po bid thereafter, continue Effexor XR 75mg 10/04/18 - increase Effexor to 150mg, and continue Buspar 10mg po bid 10/05 - Continue venlafaxine 150mg - Buspirone titrated to 10mg TIDM 10/06 - Continue medications for depression as above - buspirone titrated to 15mg TIDM to target reports of ongoing anxiety - Continue prn doses of quetiapine 25mg; though patient believes buspirone to be more effective - Assist patient in exploring effective coping strategies aside from walking laps, as may not be able to use the technique in all settings (4) HLD (hyperlipidemia): 10/01 - Outpatient fasting blood work reviewed (07/06/2018) - Total cholesterol elevated at 255; triglycerides elevated at 200; LDL elevated at 172. - Fasting glucose was WNL at 86. - Will repeat fasting blood work to have updated 3 month values; especially with the consideration for additional medication changes 10/02 - Metabolic labs all WNL today (5) Obesity: 10/01 and 10/02 - BMI - 37.3; was offered trial of metformin as part of medication regimen to offset weight gain likely with re-trial of quetiapine - Pt deferred offer at this time, stating he will consider when he returns to outpatient setting (6) Alcohol abuse: Inventory Assets Strengths: willingness for treatment, support of family, established outpatient providers Needs: resolution of SI, effective coping strategies Risk Factors Assessment Male: Yes : Yes Do You Have Access To A Gun?: Yes (states was secured by father; will need to confirm) Health Problems: Yes Mental Health Diagnoses: Yes Substance Use Disorders: No (Hx of alcohol abuse, last drink over 1 year ago) Previous Attempt: Yes (interrupted attempt, was set-up to hang himself in his garage) Previous Attempt; Didn't Tell Anyone: Yes Family History of Suicide: No Previous Psychiatric Hospitalization: No Hopelessness: Yes Smoker: No Protective Factors Assessment Gnosticist Beliefs: Yes : No Responsible for Young Children: No 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 Pt has a reported diagnosis of bipolar I disorder and generalized anxiety disorder, currently established with outpatient psychiatric providers. Pt was admitted on 09/30/18 17:06 on a 201 voluntary commitment for increased agitation/restlessness and suicidal ideation with plan to either shoot or hang himself. Chief Complaint "A bit more anxious today, there's a lot of stuff piling up outside of here." Review of Systems Notes Constitutional: denied Cardiovascular: denied Respiratory: denied Gastrointestinal: denied Neurological: denied Psychiatric: denies symptoms other than stated above Total of at least 10 systems reviewed, pertinent positives as above and in HPI. Sleep Information Total Hours of Sleep: 7 Sleep Comments: received a prn dose of trazadone for sleep aid Meal Information Percent Meal Consumed - Breakfast: 50 Percent Meal Consumed - Lunch: 50 Percent Meal Consumed - Dinner: 50 Subjective Subjective Patient was seen & assessed and interval progress reviewed with Nursing. Staff report the patient had continued to report poor mood yesterday with ongoing SI. He remains ambivalent about discharge plans with regard to outpatient therapy. Pt was seen today to assess progress since admission. Pt states he is "more anxious" today, concerned about "work, my PNAP stuff, I don't know." He states walking is effective to reduce his anxiety to some extent, but admits to having limited coping strategies beyond this. We discussed various mindfulness skills and distraction techniques which patient may consider refining. Patient was encouraged to reach out to other staff for further recommendations. Patient reports that his sleep last evening was "the first good sleep I have had since I have been here." He admits to "general feelings of anxiety" throughout the day, which is something he is hoping to address prior to discharge. Patient does admit to less frequent but ongoing suicidal ideation. He does admit that the plan to hang himself continues to be a thought, though thinks his intent to act may be reduced. Patient denies other specific needs or concerns today. Physical Exam Psychiatric Orientation: alert, oriented x 3 and cooperative Apperance: appropriately dressed and + disheveled Eye Contact: good eye contact Motor Behavior: steady gait and station (Frequently observed to be walking laps around the unit) and no abnormal motor movements Speech: normal rate/rhythm/volume of speech (Monotone) Affect: + depressed affect and + anxious affect Mood: + depressed mood and + anxious mood ("A bit more anxious today") Thought Process: goal directed thought process and clear/coherent thought process Thought Content: reality based without delusions, + hopelessness and + worthlessness Suicidal Thoughts: + reports suicidal thoughts (Reporting less frequent, however remains unable to contract for safety outside of hospital setting) and + reports suicidal plan (Admits to ongoing thoughts that he could hang himself) Homicidal Thoughts: denies homicidal thoughts Hallucinations: no auditory hallucinations and no visual hallucinations Cognition: attention grossly intact and language grossly intact Estimated Intelligence: consistent with education level Insight: + fair insight Judgement: + fair judgement Vital Signs (Past 24 Hours) Last Vital Signs Temp 36.4 C L 10/07/18 06:31 Pulse 87 10/07/18 06:31 Resp 18 10/07/18 06:31 BP 136/86 10/07/18 06:31 Pulse Ox 96 09/30/18 16:56 Results & Data Current Inpatient Medications Current Inpatient Medications: Current Inpatient Medications Acetaminophen (Tylenol) 650 mg PO Q4H PRN PRN Reason: Headache or Minor Fever Stop: 10/30/18 17:05 Last Admin: 10/06/18 21:22 Dose: 650 mg Documented by: Al Hydrox/Mg Hydrox/Simethicone (Maalox) 30 ml PO Q4H PRN PRN Reason: GI Upset Stop: 10/30/18 17:05 Bismuth Subsalicylate (Kaopectate) 15 ml PO PRN PRN PRN Reason: Loose Stool Stop: 10/30/18 17:05 Buspirone HCl (Buspar) 10 mg PO TI JAMIE Stop: 11/04/18 12:59 Last Admin: 10/07/18 08:44 Dose: 10 mg Documented by: Hydroxyzine HCl (Vistaril) 50 mg PO HSZ PRN PRN Reason: Insomnia Stop: 10/30/18 17:05 Last Admin: 10/01/18 23:07 Dose: 50 mg Documented by: Lamotrigine (Lamictal) 200 mg PO HS [facility] Stop: 10/30/18 21:59 Last Admin: 10/06/18 21:22 Dose: 200 mg Documented by: Magnesium Hydroxide (Milk Of Magnesia) 30 ml PO DAILY PRN PRN Reason: Heartburn Stop: 10/30/18 17:05 Quetiapine Fumarate (Seroquel) 25 mg PO Q4H PRN PRN Reason: agitation/anxiety Stop: 10/31/18 11:29 Last Admin: 10/07/18 10:29 Dose: 25 mg Documented by: Quetiapine Fumarate (Seroquel) 300 mg PO HS JAMIE Stop: 11/02/18 21:59 Last Admin: 10/06/18 21:22 Dose: 300 mg Documented by: Rosuvastatin Calcium (Crestor) 10 mg PO QAM JAMIE Stop: 10/31/18 08:59 Last Admin: 10/07/18 08:44 Dose: 10 mg Documented by: Sodium Chloride ([place] Nasal) 1 - 2 sprays NA PRN PRN PRN Reason: Nasal Dryness/Congestion Stop: 10/30/18 17:05 Trazodone HCl (Desyrel) 100 mg PO HS PRN PRN Reason: insomnia Stop: 10/31/18 16:41 Last Admin: 10/06/18 21:22 Dose: 100 mg Documented by: Venlafaxine HCl (Effexor Extended Release) 150 mg PO QAM JAMIE Stop: 11/03/18 09:14 Last Admin: 10/07/18 08:44 Dose: 150 mg Documented by: Post Discharge Appointments Primary Care Physician Name Of Family Doctor: Declined. Psychiatrist Name of Psychiatrist: [facility] - MARANDA Shannon Psychiatrist's Date of Appointment with Psychiatrist: 10/13/18 Time of Appointment with Psychiatrist: 12:40pm Psychiatric Appointment Comment: [address] [place] [address], [place] [address] Therapist Name of Therapist: Sherri Jacobson Therapist's Date of Therapist Appointment: 10/13/18 Time of Therapist Appointment: 4pm Therapy Appointment Comment: [address] [place] [id number] [employer] Grade Math Teacher Name of 4Th Grade Math Teacher: VINNIE Woodson Phone Number for 4Th Grade Math Teacher: [phone] ext. [phone] Case Management Appointment Comment: [address], [place] [address] Other #1: Name of Aftercare Appointment: [facility] [facility] - Phone Number of Aftercare Appointment: [phone] Aftercare Appointment Comment: [address] [place] [address], [place] [address] Contact Information Discharge Discharge Address: [address] [place] [address] CPT Code CPT Code 82842 (1) Bipolar disorder Active/Remission status: currently active Current bipolar episode type: depressed Current episode severity: unspecified Qualified Code(s): F31.30 - Bipolar disorder, current episode depressed, mild or moderate severity, uns pecified (2) HLD (hyperlipidemia) Hyperlipidemia type: unspecified Qualified Code(s): E78.5 - Hyperlipidemia, unspecified (3) Obesity Body mass index: BMI 37.0-37.9 Obesity classification: adult class 2 (BMI 35 - 39.9) Obesity type: unspecified obesity type
[2018-10-07] MEDS: TRAZODONE HCL 50 MG TAB PO PRN (21:53)
[2018-10-07] MEDS: ACETAMINOPHEN 325 MG TAB PO PRN (21:53)
[2018-10-07] MEDS: QUETIAPINE FUMARATE 100 MG TABLET PO SCH (21:54)
[2018-10-07] MEDS: lamoTRIgine 100 MG TAB PO SCH (21:54)
[2018-10-08] MEDS: VENLAFAXINE HCL XR 150 MG CAPXR PO SCH (09:30)
[2018-10-08] MEDS: ROSUVASTATIN CALCIUM 10 MG TAB PO SCH (09:30)
[2018-10-08] MEDS: ACETAMINOPHEN 325 MG TAB PO PRN (10:18)
[2018-10-08] MEDS: QUETIAPINE FUMARATE 25 MG TABLET PO PRN (10:18)
--- NOTE | 2018-10-08 14:49 | Discharge Summary ---
Date of Service October 08, 2018 History of Present Illness Lázaro Guido is a 38-year-old male admitted voluntarily for inpatient psychiatric treatment upon referral from his outpatient psychiatric prescriber. Patient was brought to the ED by his father after he had shared thoughts of suicidal ideation and reported difficulty coping with racing thoughts and agitation. Patient had reported suicidal ideation for the past week with a plan to either shoot himself or hang himself. Patient admits to this provider that he has been sleeping with his gun next to him and had acquired a rope which she has been keeping in his car. Patient states "It is really overwhelming. It used to be that it would take a lot of work for me to consider suicide, now it seems like it is taking a lot of work to prevent it." Patient does admit that 10 years ago he had been in the process of attempting to end his life by hanging , but states "I do not know, I must have gotten scared, I just got off the chair and walked away." Patient reports a current diagnosis of bipolar disorder and is established with outpatient therapy and a psychiatric prescriber. Patient states that he has been receiving psychiatric treatment since the age of 21, when his suicidal thoughts began. Patient has been started on antidepressant medication, which she states was effective to improve his mood. Patient admits to a struggle with alcohol abuse, beginning in 2009. He states this was "the beginning of my divorce". At the time the patient was also in nursing school, and was experiencing increased stress from this program. Patient did receive treatment through an intensive outpatient program and his attendance in AA meetings and co unseling. He reports sporadic psychiatric treatment since that time. Patient states he has been established in routine care for the last year, as he has been noting periods of increased restlessness and agitation. Patient reports a period of time in which he did not require sleep for 3 days, was excessively irritable, and had relapsed on his alcohol use after 8 years of sobriety. The patient states that his irritability and agitation lasted for about 4-5 days. Patient states that he is experienced 2 of these episodes in the springtime for the past 2 years. He also believes that stress tends to trigger these events as well. Patient admits to difficulty sleeping recently; however, has been feeling fatigued during the day and would not describe himself as overly productive. Patient reports other symptoms of difficulty falling asleep, difficulty staying asleep, reduced appetite with possible 4 pound weight loss, decreased energy, difficulty concentrating, hopelessness, and persistent suicidal thoughts for the past week. Patient does report a history of anxiety, which tends to be heightened by financial concerns. Patient states he has not experienced panic attacks before the last few days, stating he has recently noticed tightness in his stomach and chest, difficulty breathing, feeling a need to move around, diaphoresis, and racing/scattered thoughts. Patient states the symptoms have lasted a maximum of 10 minutes in the time that they have occurred. Patient has experienced recent medication changes to assist with his increased agitation and restlessness; however, does not feel that they have been effective in managing his scattered thoughts and mood. Pt denies HI, SIB, A/V hallucinations, paranoia, OCD, PTSD, eating disorder, and other specific psychiatric symptoms. His personal report of his manic/hypomanic symptoms are not clearly consistent with a bipolar presentation. Physical Exam Psychiatric Orientation: oriented x 3 Apperance: appropriately dressed and appropriately groomed Eye Contact: good eye contact Motor Behavior: no abnormal motor movements Speech: normal rate/rhythm/volume of speech Affect: euthymic affect "A lot better. 6/10 now." Thought Process: goal directed thought process, linear/logical thought process and clear/coherent thought process Thought Content: reality based without delusions Occasional fleeting thoughts of suicide, without any specific plan or intent. The patient is currently future oriented, is well oriented to his safety plan, and contracts for safety in the community. Homicidal Thoughts: denies homicidal thoughts Hallucinations: no auditory hallucinations Cognition: recent memory grossly intact, attention grossly intact and language grossly intact Estimated Intelligence: + above average estimated intelligence Insight: good insight Judgement: good judgement Vital Signs (Past 24 Hours) Last Vital Signs Temp 36.4 C L 10/08/18 06:22 Pulse 116 H 10/08/18 06:23 Resp 18 10/08/18 06:22 BP 104/68 10/08/18 06:23 Pulse Ox 96 09/30/18 16:56 Principal Diagnosis Bipolar disorder Psychiatric Data During the course of hospitalization the patient was offered various modalities of psychiatric treatment and education. Specifically, he participated in individual, group, activity, and milieu therapies. In addition, several changes were made and the patient's medication regimen. Ziprasidone was discontinued in favor of quetiapine, and the dose of quetiapine was eventually titrated to 300 mg at bedtime, and 25 mg every 4 hours as needed for anxiety. The patient tolerated this medication change well. The patient was also placed on venlafaxine ER 150 mg daily, and buspirone 15 mg 3 times a day. His outpatient dose of lamotrigine, namely 200 mg daily, was also continued in the hospital. Initially, the patient's affect was quite depressed, but with treatment steadily improved to the degree that he was able to report that he felt confident that he will be safe in the community. He worked on developing a safety plan, and is able to discuss the plan in detail. He cites the fact that he has a supportive family and, in fact, notes that he moved to [place] in order to be closer to his family. He does face a number of stresses in the community. These include a requirement that he submit to ongoing monitoring of because of his history of alcohol abuse, treated through residential treatment and 2011. 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 The patient also worked to develop improved coping strategies, and has found that he is able to manage anxiety depressed mood, in part, through walking or other forms of exercise. He tells us that his goal is to continue the requisite monitoring program so that, within the next 3 years she will be able to apply to have his [place] nursing license restored, at which point he hopes to find a more lucrative job. Day of Discharge Assessment On the day of discharge, the patient was found to be appropriately dressed and groomed. He was pleasant and cooperative. The patient's affect is generally euthymic, but perhaps slightly constricted. He reports that his mood is "much better," and "6 out of 10 today." The patient's thought processes demonstrate tight associations. His speech is fluid, spontaneous, and delivered at a normal rate volume. There is no evidence of any delusional material and the patient's thought content, and his reported thoughts are all reality based. While he acknowledges that he has had occasional thoughts of suicide, these thoughts are fleeting, and are not accompanied with any specific plan or intent. He assures us that should specific suicidal thoughts develop he will notify his father and/or his outpatient therapist, and, as necessary, will present to the emergency room for further evaluation. The patient's judgment and insight are both good. His intelligence is estimated to be above average. The patient tells us that he is aware of that he continues to face various stressors in the community, but he notes that he now feels equipped to handle them and feels ready for discharge. Our assessment is that the patient is prepared for community reentry at this time and can safely continue treatment on an outpatient basis. Transition of Care Transition Of Care Record: was reviewed with the patient Advance Directives Advance Directives Information Provided: Yes Advance Directives: No Mental Health Advance Directive: No Advance Directives on File: No Living Will: No Power of Water Hydrant Installer: No Advance Directives Reason:: Declines as Mental Health Visit. 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 Relationships: No Supportive Family: Yes Good Rapport with Provider: Yes Absence of Any Risk Factors Above: No Tobacco Cessation at Discharge Tobacco Cessation Medication Prescribed at Discharge: Not Applicable/Non-Smoker Total Time Total Time Spent: Greater Than 30 Minutes Total Time Includes: Examination of the patient, Discharge Planning, Medication Reconciliation and Communication with other providers Discharge Data Consultations 09/30/18 17:20 ED Decision to Admit Stat Lab Results 09/30/18 09/30/18 09/30/18 15:09 15:09 15:09 WBC 7.45 RBC 5.03 Hgb 14.4 Hct 42.0 MCV 83.5 MCH 28.6 MCHC 34.3 RDW Std Deviation 42.6 RDW Coeff of Marely 14.0 Plt Count 205 MPV 10.6 H Immature Gran % (Auto) 0.1 Neut % (Auto) 69.8 Lymph % (Auto) 20.3 [place] % (Auto) 9.3 Eos % (Auto) 0.4 Baso % (Auto) 0.1 Immature Gran # (Auto) 0.01 Neut # (Auto) 5.20 Lymph # (Auto) 1.51 [place] # (Auto) 0.69 H Eos # (Auto) 0.03 Baso # (Auto) 0.01 Sodium 139 Potassium 3.8 Chloride 107 Carbon Dioxide 28 Anion Gap 4.0 BUN 15 Creatinine 0.89 Est Cr Clr Drug Dosing 159.4 Est GFR ( Amer) 126.6 Est GFR (Non-Af Amer) 109.2 BUN/Creatinine Ratio 16.8 Glucose 92 Fasting Glucose Calcium 8.9 Total Bilirubin 0.9 AST 23 ALT 46 Alkaline Phosphatase 106 Total Protein 7.9 Albumin 4.3 Globulin 3.6 Albumin/Globulin Ratio 1.2 Triglycerides Cholesterol LDL Cholesterol, Calc VLDL Cholesterol, Calc HDL Cholesterol Cholesterol/HDL Ratio TSH 1.550 Urine Color Urine Appearance Urine pH Ur Specific [place] Urine Protein Urine Glucose (UA) Urine Ketones Urine Blood Urine Nitrite Urine Bilirubin Urine Urobilinogen Ur Leukocyte Esterase Salicylates < 1.7 L Urine Opiates Screen Ur Methadone, Qual Acetaminophen < 2 L Urine Barbiturates Ur Phencyclidine (PCP) U Amphetamin/Meth Scrn MDMA (Ecstasy) Screen U Benzodiazepines Scrn Ur Cocaine Metabolite U Marijuana (THC) Screen Ethyl Alcohol mg/dL 09/30/18 09/30/18 09/30/18 15:09 15:45 15:45 WBC RBC Hgb Hct MCV MCH MCHC RDW Std Deviation RDW Coeff of Marely Plt Count MPV Immature Gran % (Auto) Neut % (Auto) Lymph % (Auto) [place] % (Auto) Eos % (Auto) Baso % (Auto) Immature Gran # (Auto) Neut # (Auto) Lymph # (Auto) [place] # (Auto) Eos # (Auto) Baso # (Auto) Sodium Potassium Chloride Carbon Dioxide Anion Gap BUN Creatinine Est Cr Clr Drug Dosing Est GFR ( Amer) Est GFR (Non-Af Amer) BUN/Creatinine Ratio Glucose Fasting Glucose Calcium Total Bilirubin AST ALT Alkaline Phosphatase Total Protein Albumin Globulin Albumin/Globulin Ratio Triglycerides Cholesterol LDL Cholesterol, Calc VLDL Cholesterol, Calc HDL Cholesterol Cholesterol/HDL Ratio TSH Urine Color Yellow Urine Appearance Clear Urine pH 6.0 Ur Specific Bath 1.019 Urine Protein Negative Urine Glucose (UA) Negative Urine Ketones 1+ H Urine Blood Negative Urine Nitrite Negative Urine Bilirubin Negative Urine Urobilinogen Negative Ur Leukocyte Esterase Negative Salicylates Urine Opiates Screen Neg Ur Methadone, Qual Neg Acetaminophen Urine Barbiturates Neg Ur Phencyclidine (PCP) Neg U Amphetamin/Meth Scrn Neg MDMA (Ecstasy) Screen Neg U Benzodiazepines Scrn Neg Ur Cocaine Metabolite Neg U Marijuana (THC) Screen Neg Ethyl Alcohol mg/dL < 3.0 10/02/18 06:27 WBC RBC Hgb Hct MCV MCH MCHC RDW Std Deviation RDW Coeff of Marely Plt Count MPV Immature Gran % (Auto) Neut % (Auto) Lymph % (Auto) [place] % (Auto) Eos % (Auto) Baso % (Auto) Immature Gran # (Auto) Neut # (Auto) Lymph # (Auto) [place] # (Auto) Eos # (Auto) Baso # (Auto) Sodium Potassium Chloride Carbon Dioxide Anion Gap BUN Creatinine Est Cr Clr Drug Dosing Est GFR ( Amer) Est GFR (Non-Af Amer) BUN/Creatinine Ratio Glucose Fasting Glucose 93 Calcium Total Bilirubin AST ALT Alkaline Phosphatase Total Protein Albumin Globulin Albumin/Globulin Ratio Triglycerides 102 Cholesterol 129 LDL Cholesterol, Calc 67 VLDL Cholesterol, Calc 20 HDL Cholesterol 42 Cholesterol/HDL Ratio 3 TSH Urine Color Urine Appearance Urine pH Ur Specific [place] Urine Protein Urine Glucose (UA) Urine Ketones Urine Blood Urine Nitrite Urine Bilirubin Urine Urobilinogen Ur Leukocyte Esterase Salicylates Urine Opiates Screen Ur Methadone, Qual Acetaminophen Urine Barbiturates Ur Phencyclidine (PCP) U Amphetamin/Meth Scrn MDMA (Ecstasy) Screen U Benzodiazepines Scrn Ur Cocaine Metabolite U Marijuana (THC) Screen Ethyl Alcohol mg/dL Hospital Course (1) Suicidal ideation: 10/01 and on - Admitted to a locked inpatient behavioral health unit, on q15 minute safety checks - Encourage medication initiation/adjustments as indicated - Encourage participation in group and recreational therapies - Gather collateral information from outpatient providers - Suggest family meeting to involve outpatient supports in safety planning - Arrange appropriate aftercare - 10/02 family meeting parents to secure gun, and pills - 10/03 SW to call family to secure the rope 10/05 - Admits to ongoing episodic SI, unable to contract for safety outside of the hospital setting 10/06 - Patient's mother plans to secure guns in a safe, and removed the rope from his car (which he got to hang himself). 10/08 -Patient acknowledges that he has had occasional ongoing fleeting thoughts of suicidal, but these thoughts are not associated with any plan and are not associated with any intent. He tells us that he now feels able to contract for safety outside the hospital. He is future oriented, and focuses on various long-term goals that he hopes to achieve in the community. (2) Bipolar disorder: 10/01 and 10/02 - Current diagnosis of bipolar I disorder, though patient's perception of symptoms does not appear to be consistent - Attempt to clarify criteria with psychiatric prescriber - Pt requesting retrial of quetiapine. Will discontinue ziprasidone (received 60mg total today), initiate 100mg of quetiapine this evening - Schedule 50mg quetiapine qAM and 100mg qHS - Could consider ongoing titration of venlafaxine as tolerated - with close observation for activation/increased restlessness - Continue lamotrigine 200mg qHS - Will add trazodone 50mg prn for sleep - pt encouraged to trial quetiapine first 10/03 - ongoing high anxiety alongside low mood, increase seroquel to 300mg/hs, and as noted for anxiety addition of buspar titrating 7.5mg today divided and 10mg po bid thereafter, will continue effexor XR at 75mg for now with consideration of further titration 10/04/18 - buspar at 10mg po bid, will advance effexor XR to 150mg this AM, and continue seroquel 300mg/hs, trazodone 50mg/hs for sleep, and lamictal 200mg. Polypharmacy is not ideal but patient states he believes the seroquel and effexor helped him before and wishes to remain with those, buspar added to assist with anxiety (lamictal is presently a vestige that may help mood stability) 10/08/18 -O the patient carries a diagnosis of bipolar disorder, he reports that he feels that his biggest problem is recurring depression. Within that context, we agree that he should be treated with an antidepressant medication, but also needs to be "covered" with mood stabilizers. Currently, the plan will be for him to be discharged on Seroquel 300 mg at bedtime, and lamotrigine 200 mg daily. BuSpar has reportedly been effective in helping the patient manage anxiety, and he is also periodically requested as needed Seroquel 25 mg during the day. - for now continue seroquel prn in the day but would like to phase this out as buspar takes hold OR optimize buspar to replace over the next few days. 10/05 - Buspirone titrated to 10mg TIDM to target anxiety - Continue venlafaxine ER 150mg, quetiapine 300mg, and lamotrigine 200mg - Will offer higher dose of trazodone 100mg prn insomnia, as patient reporting persistent difficulty sleeping - Educated on signs and symptoms of serotonin syndrome, especially as these doses are being adjusted 10/06 - Continue current medications as above. Encourage attendance and participation in groups and therapy. - [facility]. - Spoke with patient's mother at her request and answered questions about luis a atment. 10/07 - Continue current medication regimen for depression, buspirone titrated for anxiety as below - Encourage patient to solidify aftercare plan with staff assistance - Encourage participation in group programming (3) Generalized anxiety disorder: 10/01 and 10/02 - Continue venlafaxine 75mg daily - prn quetiapine 25mg available for acute anxiety, as patient feels hydroxyzine is ineffective 10/03 - added Buspar 7.5mg today divided, and 10mg po bid thereafter, continue Effexor XR 75mg 10/04/18 - increase Effexor to 150mg, and continue Buspar 10mg po bid 10/05 - Continue venlafaxine 150mg - Buspirone titrated to 10mg TIDM 10/06 - Continue medications for depression as above - buspirone titrated to 15mg TIDM to target reports of ongoing anxiety - Continue prn doses of quetiapine 25mg; though patient believes buspirone to be more effective - Assist patient in exploring effective coping strategies aside from walking laps, as may not be able to use the technique in all settings 10/08 -On the day of discharge, the patient reports that his anxiety levels have been reduced, circumstance that he feels, in part, is attributable to learning better coping skills and, in addition, the titration of BuSpar to a dose of 15 mg 3 times a day. His improvement, in terms of anxiety, may also be partially attributable to the increased dose of venlafaxine. (4) HLD (hyperlipidemia): 10/01 - Outpatient fasting blood work reviewed (07/06/2018) - Total cholesterol elevated at 255; triglycerides elevated at 200; LDL elevated at 172. - Fasting glucose was WNL at 86. - Will repeat fasting blood work to have updated 3 month values; especially with the consideration for additional medication changes 10/02 - Metabolic labs all WNL today (5) Obesity: 10/01 and 10/02 - BMI - 37.3; was offered trial of metformin as part of medication regimen to offset weight gain likely with re-trial of quetiapine - Pt deferred offer at this time, stating he will consider when he returns to outpatient setting 10/08 -The patient indicates that he hopes to address his obesity through portion control, dietary selection, and more regular exercise. To this end, he has engaged in daily exercise on the unit, and reports that an additional benefit of the exercises it seems to help with his mood and anxiety. (6) Alcohol abuse: Post Discharge Appointments Primary Care Physician Name Of Family Doctor: Declined. Psychiatrist Name of Psychiatrist: [facility] - MARANDA Shannon Psychiatrist's Date of Appointment with Psychiatrist: 10/13/18 Time of Appointment with Psychiatrist: 12:40pm Psychiatric Appointment Comment: [address] [place] [address], [place] [address] Psychiatrist Release of Information: Obtained, Reviewed and Signed Therapist Name of Therapist: Sherri Smith - Indira Therapist's Date of Therapist Appointment: 10/13/18 Time of Therapist Appointment: 4pm Therapy Appointment Comment: [address] [place] [id number] Therapist Release of Information: Obtained, Reviewed and Signed Executive Officer Special Warfare Team Name of Executive Officer Special Warfare Team: VINNIE Woodson Phone Number for Executive Officer Special Warfare Team: [phone] ext. [phone] Case Management Appointment Comment: [address], [place] [address] Smoking Cessation Counseling Tobacco Cessation Medication Prescribed at Discharge: Not Applicable/Non-Smoker Other #1: Name of Aftercare Appointment: [facility] - Phone Number of Aftercare Appointment: [phone] Aftercare Appointment Comment: [address] [place] [address] Contact Information Discharge Discharge Address: [address] [place] [id number] Discharge Plan Discharge Items Patient Disposition: Home - Self-Care Reason For Visit: BIPOLAR DISORDER Discharge Diagnosis: Bipolar Disorder, Depressed Condition: Good Discharge Goals: Improve disease control, Improve function and Learn about illness Specific Goals: Remember: It gets better. Activity: Resume your previous activity Non-emergency contact: Psychiatrist and Therapist Call non-emergency contact if: you have any medication questions and your symptoms worsen Follow-up/Referrals: PCP,NO [Primary Care Provider] - Diet: Regular Addtl Provider Instructions: Access your Safety Plan, as needed. Prescriptions: New quetiapine 25 mg Tablet 25 mg PO Q4H PRN (Reason: Anxiety) Qty: 30 RF: 1 venlafaxine 150 mg Capsule,Extended Release 24hr 150 mg PO QAM Qty: 30 RF: 0 hydroxyzine HCl 25 mg Tablet 50 mg PO HSZ Qty: 30 RF: 1 quetiapine 300 mg tablet 300 mg PO HS Qty: 30 RF: 0 buspirone 15 mg tablet 15 mg PO TID Qty: 90 RF: 0 trazodone 100 mg tablet 100 mg PO HS PRN (Reason: sleep) Qty: 30 RF: 0 Continued rosuvastatin [Crestor] 10 mg Tablet 10 mg PO DAILY RF: 0 lamotrigine [Lamictal] 200 mg Tablet 200 mg PO HS RF: 0 Discontinued ziprasidone HCl [Geodon] 60 mg Capsule 60 mg PO BID RF: 0 hydroxyzine HCl 25 mg tablet See Rx Instructions .ROUTE .COMPLEX RF: 0 venlafaxine 75 mg capsule,extended release 24hr 75 mg PO DAILY RF: 0 Stand-Alone Forms: [facility] Discharge Orders: Discharge Order (Routine); Ordered 10/08/18 Ordered By: [facility] Admission Data Admit Date/Time: 09/30/18 17:06 Attending Provider: Mary Patiño Admit Provider: Mary Patiño Primary Care Provider: PCP,NO Other Providers: Mary Patiño Service: Psychiatry Other Interventions: PSY Interdisciplinary Discharge Planning Last Done: 10/08/18 14:37
[2018-10-08] MEDS ORDERED: DESTROY THIS MEDICATION ONE (16:11)
== END 2018-10-08 16:17 | disposition home or self-care (01) | DRG 885 ==
LOC: ED 14:24 → 3S 17:06